=== PATIENT | female | born 1955 | race Caucasian/White ===

== ENCOUNTER 2018-07-20 13:03 | Outpatient (CLI) | payer OTHER ==
--- NOTE | 2018-07-20 14:55 | ULT ---
THYROID ULTRASOUND: INDICATION: Thyroid nodules. COMPARISON: No prior comparison available. FINDINGS: There is nonvisualization of the right thyroid lobe. The left thyroid length is approximately 4 cm. Within the lower aspect of the left thyroid lobe, there is a complex nodule nearly 2 cm in size, pre dominantly solid in echotexture. There is an adjacent predominantly cystic nodule of the right thyro id lobe with a small internal focus of increased echogenicity, measuring approximately 9 mm. Additio nal punctate foci of decreased echogenicity of the left thyroid lobe are seen. There is thickening o f the isthmus of 6 mm. IMPRESSION: 1. Nonvisualization of right thyroid lobe. Correlate for history of prior surgical treatment. 2. Nodules of the left thyroid lobe, the largest of which approximates 2 cm and is solid in echotext ure. This would be amenable to fine needle aspiration as clinically necessary. POS: [facility]
== END 2018-07-20 13:04 | disposition home or self-care (01) ==
LOC: BICULT 13:03
PROVIDERS: ATTEND Otolaryngology Plastic Surgery within the Head & Neck
DX: E04.2 Nontoxic multinodular goiter (principal)
CPT/HCPCS: 76536

== ENCOUNTER 2018-07-27 11:32 | Outpatient (CLI) | payer OTHER ==
--- NOTE | 2018-07-27 13:33 | RAD ---
CHEST TWO VIEWS: History: Dyspnea. FINDINGS: Patient is scoliotic with a single barbara through the thoracic and likely lower lumbar spine. There appe ars to be a layering right effusion. Heart size is enlarged. IMPRESSION: Likely a small layering pleural effusion although difficult to evaluate due to patient's scoliotic ch jeremy and rotation. POS: OFF
== END 2018-07-27 11:33 | disposition home or self-care (01) ==
LOC: RAD 11:32
PROVIDERS: ATTEND Internal Medicine
DX: R06.00 Dyspnea, unspecified (principal)
CPT/HCPCS: 71046

== ENCOUNTER 2018-08-20 12:29 | Day surgery (SDC) | payer OTHER ==
[2018-08-17 11:12] VITALS: BMI 27.1
[2018-08-20] MEDS ORDERED: Lidocaine 1% PF 5 ML VIAL ONE (12:39)
[2018-08-20] MEDS ORDERED: Sodium Bicarbonate 2.5 MEQ/5 ML VIAL ONE (12:39)
[2018-08-20 13:55] VITALS: BP 120/58; TEMP 99.5
--- NOTE | 2018-08-21 14:15 | ULT ---
ULTRASOUND GUIDED FINE NEEDLE ASPIRATION OF THE LEFT THYROID LOBE MASS: COMPARISON: 07/20/2018. FINDINGS: Successful ultrasound-guided fine needle aspiration of a smaller more cystic nodule with layering delicia cification in the left thyroid lobe. There appears the described solid nodule is deep in the left th yroid lobe and is not easily amenable to ultrasound-guided biopsy. A total of 4 passes were obtained . There are no immediate postprocedure complications. TECHNIQUE: Consent was obtained to perform an ultrasound-guided fine needle aspiration of the left thyroid lobe. There are 2 separate lesions present. The more solid lesion is deep in the left thyroid lobe and c annot be easily accessed. This lesion has solid echotexture and the echotexture is similar to the ad jacent thyroid gland. There is a slightly more superficial lesion that has a complex echotexture wit h possible layering debris/calcification. This lesion is amenable to fine needle aspiration. FNA wa s performed with a total of 4 passes. The patient tolerated the procedure well. No immediate postpr ocedure complication. IMPRESSION: Successful ultrasound-guided fine needle aspiration of left thyroid nodule. A total of 4 passes were performed. Final pathologic diagnosis is pending. Follow up imaging of the larger nodule in six months, if warranted. Correlation with prior biopsy re port would be beneficial. Results of the study were discussed with Raj. The patient has been instructed to followup with Dr Chasidy Anthony. The patient states she has an appointment with Dr. Anthony in approximately 1 week. CODE CR POS: [facility]
== END 2018-08-20 13:43 | disposition home or self-care (01) ==
LOC: ULT 12:29
PROVIDERS: ATTEND Otolaryngology Plastic Surgery within the Head & Neck
PROC: 0GBG3ZX Excision of Left Thyroid Gland Lobe, Percutaneous Approach, Diagnostic (ICD-10-PCS; principal; 2018-08-20)
DX: E04.1 Nontoxic single thyroid nodule (principal); J45.909 Unspecified asthma, uncomplicated; E11.9 Type 2 diabetes mellitus without complications; K21.9 Gastro-esophageal reflux disease without esophagitis; Z88.0 Allergy status to penicillin; Z91.041 Radiographic dye allergy status
CPT/HCPCS: 10022; 76942; 88173; J2001

== ENCOUNTER 2018-08-30 20:32 | Inpatient (IN) | payer OTHER ==
[~2018-08-30 20:32] MED LIST: ISOVUE-370 76%-LOCM 1 ML ONE
[2018-08-30] MEDS ORDERED: methylPREDNISolone Sod Succ/PF 125 MG/2 ML VIAL ONE (21:10)
[2018-08-30] MEDS ORDERED: Famotidine/PF 20 mg/2ml Vial ONE (21:10)
[2018-08-30] MEDS ORDERED: diphenhydrAMINE 50 MG/ML VIAL ONE (21:12)
[2018-08-30 21:15] LABS: #Basophils 0.1 thou/uL (0.0-0.2); #Eosinphils 0.1 thou/uL (0.0-0.7); #Lymphocytes 1.6 thou/uL (1.20-3.40); #Monocytes 0.8 thou/uL (0.11-0.59); %Basophils 0.7 % (0.0-1.0); %Eosinophils 0.6 % (0.0-10.0); %Lymphocytes 14.9 % (21.0-51.0); %Monocytes 7.8 % (0.0-10.0); Hemoglobin 13.4 g/dL (12.0-16.0); Mean Corpuscular HGB CONC 31.3 g/dL (32.0-36.0); Mean Corpuscular Hemoglobin 30.2 pg (27.0-31.0); Mean Corpuscular Volume 96.5 fL (78.0-98.0); Platelet Count 293 thou/uL (130-400); RBC Distribution Width 14.4 % (11.5-14.5); Red Blood Cell (RBC) Count 4.43 mill/uL (4.20-5.40); White Blood Cell (WBC) Count 10.5 thou/uL (4.8-10.8)
[2018-08-30 21:35] LABS: ALT (SGPT) 123 U/L (8-55); AST (SGOT) 58 U/L (5-34); Albumin 3.9 g/dL (3.4-4.8); Alkaline Phosphatase 75 U/L (40-150); Anion Gap 11 mmol/L (10-20); BUN (Urea Nitrogen) 13 mg/dL (9.8-20.1); Bilirubin, Total 0.5 mg/dL (0.2-1.2); Calc. Creatinine Clearance 0 mL/min (70-130); Calcium 9.4 mg/dL (7.8-10.44); Carbon Dioxide 37 mmol/L (23-31); Chloride 98 mmol/L (98-107); Estimated GFR-MDRD 89; Globulin 2.9 g/dL (2.4-3.5); Glucose 215 mg/dL (80-115); Potassium 3.6 mmol/L (3.5-5.1); Protein, Total 6.8 g/dL (6.0-8.3); Sodium 142 mmol/L (136-145)
[2018-08-30 21:40] LABS: CKMB 1.3 ng/mL (0-6.6); Troponin I 0.013 ng/mL (< 0.028)
--- NOTE | 2018-08-30 22:50 | CT ---
CT ANGIOGRAM OF THE CHEST 08/30/18 COMPARISON: None. HISTORY: Shortness of breath, assess for pulmonary embolism. TECHNIQUE: Axial CT imaging obtained at 2.5 mm intervals through the chest with IV contrast using a CT angiogram protocol. Coronal and oblique sagittal 3D reformatted imaging obtained. FINDINGS: Imaged upper abdomen demonstrates a hypodense lesion within the anterior aspect of the liver measurin g 8 mm, likely on the basis of a small cyst. No significant pleural, pericardial or mediastinal fluid. There is a prominent levoscoliosis of the thoracic spine with a Salgado barbara which extends from the upper/mid thoracic spine to the mid lumbar spine. 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 The heart is located within the right hemithorax. No axillary hilar or mediastinal lymphadenopathy. There is mild atherosclerotic calcification of the aortic arch. There is no endobronchial lesion evident. There is adequate opacification of the pulmonary arterial vasculature with no evidence for acute pulm onary embolism. There is no pneumothorax noted on either side. Within the anterior aspect of the left upper lobe, there is clustered reticulonodular densities, best seen on axial image 28. There is a focal area of opacity involving the anterior medial left lower lo be measuring in the 2.7 cm range suggesting a focal area of partial consolidation. There is volume loss within the right lower lobe. No acute osseous abnormality is seen. IMPRESSION: No evidence for pulmonary arterial embolism. Findings suspicious for infectious pneumonitis on the le ft. Recommend followup CT examination of the chest following treatment to document resolution. Additi onal chronic/congenital findings as described above. POS: [facility]
[2018-08-30] MEDS ORDERED: cefTRIAXone\\ROCEPHIN 2 GM VIAL ONE (23:02)
[2018-08-30] MEDS ORDERED: Azithromycin 500 MG VIAL ONE ×2 (23:02→23:03)
--- NOTE | 2018-08-30 23:52 | PDOC.FPRHP ---
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 Daniel lAonso, for progressively worsening fatigue, SOB, and lower extremity edema that has began approximately 10 days ago. The patient reports having a recent thyroid biopsy after being found to have 2 left-sided thyroid nodules by her ENT, Dr. Anthony. She stated that just 2-3 days after her biopsy she began to feel extremely more fatigued that usual. She also endorsed increased SOB, especially with exertion and some associated swelling in her feet up into her ankles. Per her sister her feet "looked like basketballs." The patient also reported some associated tachycardia, decreases appetite, and low grade fevers at home. She denied any associated cough, congestion, chest pain, sore throat, or arthralgias. She also denied any PND, orthopnea, or abdominal pain/tenderness. The patient endorsed being around her nephew who had an ear infection over and states that her boss at work has recently been sick with a cough at work. ED Course: ED: 125mg IV methylprednisilone, 20mg of famotidine, 50mg IV benadryl, 2g IV rocephin, 500mg of azithromycin and 1 duoneb treatment - Allergies/Adverse Reactions Allergies Allergy/AdvReac Type Severity Reaction Status Date / Time iodine Allergy Verified 08/31/18 00:41 Penicillins Allergy Verified 08/31/18 00:41 Tetanus Vaccines and Toxoid Allergy Verified 08/31/18 00:41 - Home Medications Medication Instructions Recorded Confirmed Type Cholecalciferol (Vitamin D3) 1,000 unit PO DAILY 08/17/18 08/31/18 History [Vitamin D] Losartan [Cozaar] 12.5 mg PO DAILY 08/17/18 08/31/18 History Multivitamin [Multivitamins] 1 cap PO DAILY 08/17/18 08/31/18 History Nebivolol HCl [Bystolic] 10 mg PO DAILY 08/17/18 08/31/18 History Olopatadine HCl [Olopatadine HCl 1 spray EA NARE DAILY 08/17/18 08/31/18 History Nasal Solution ([place])] Pantoprazole [Protonix] 40 mg PO DAILY 08/17/18 08/31/18 History metFORMIN [Glucophage] 500 mg PO QID 08/17/18 08/31/18 History - History PMHx: h/o 2 thyroid nodules s/p FNA/biopsy, DMII, GERD, asthma, dextrocardia, scoliosis PSHx: Salgado barbara placement, cervical laminectomy, appendectomy, cholecystectomy, 4-5 corrective surgeries on right hand for floating thumb at FHx: Parents- DM & HTN Social: Lives at home alone in [place]. No tobacco, EtOH, or drug use. - Review of Systems General: reports: fever/chills, weight/appetite/sleep changes, night sweats, fatigue Eyes: reports: vision changes. denies: eye pain ENT: reports: other (no sore throat). denies: nasal congestion, rhinorrhea Respiratory: reports: shortness of breath. denies: cough, congestion Cardiovascular: reports: edema. denies: chest pain, palpitation, paroxysmal nocturnal dyspnea, orthopnea Gastrointestinal: denies: nausea, vomiting, diarrhea, constipation, abdominal pain Genitourinary: reports: other (no frequency). denies: dysuria Skin: denies: rashes, itching Musculoskeletal: reports: swelling. denies: arthritis/arthralgias Neurological: reports: numbness (in fingertips and toes occasionally). denies: syncope, weakness Psychological: denies: anxiety, depression - Vital signs BP: 125/77 HR: 100 RR: 18 Tmax: 98.6F Pox: 97% on 2L Wt: 66.361 kg - Physical Exam Constitutional: NAD, awake, alert and oriented, well developed HEENT: normocephalic and atraumatic, conjunctiva clear, grossly normal vision, grossly normal hearing, normal nasal mucosa, MMM, oropharynx clear Neck: supple, FROM Chest: no-tender to palpation Heart: normal S1/S2, no murmurs/rubs/gallops, pulses present, no edema ( tachycardic with regular rhythm) Lungs: CTAB, no respiratory distress, good air movement, no rales/rhonchi, no wheezing Abdomen: soft, non-tender, bowel sounds present Musculoskeletal: ROM grossly normal, other (R hand deformity 2/2 "floating thumb " present at ) Neurological: no focal deficit, CN II-XII intact (symmetric facial movements) Skin: no rash/lesions, good turgor Heme/Lymphatic: no unusual bruising or bleeding Psychiatric: normal mood and affect, good judgment and insight, intact recent and remote memory FMR H&P: Results - Labs Result Diagrams: 08/31/18 04:49 08/31/18 04:49 Lab results: WBC 10.5 thou/uL (4.8-10.8) 08/30/18 20:57 Hgb 13.4 g/dL (12.0-16.0) 08/30/18 20:57 Hct 42.7 % (36.0-47.0) 08/30/18 20:57 MCV 96.5 fL (78.0-98.0) 08/30/18 20:57 Plt Count 293 thou/uL (130-400) 08/30/18 20:57 Neutrophils % 76.0 % (42.0-75.0) H 08/30/18 20:57 Sodium 142 mmol/L (136-145) 08/30/18 20:57 Potassium 3.6 mmol/L (3.5-5.1) 08/30/18 20:57 Chloride 98 mmol/L (98-107) 08/30/18 20:57 Carbon Dioxide 37 mmol/L (23-31) H 08/30/18 20:57 BUN 13 mg/dL (9.8-20.1) 08/30/18 20:57 Creatinine 0.67 mg/dL (0.6-1.1) 08/30/18 20:57 Glucose 215 mg/dL (80-115) H 08/30/18 20:57 Calcium 9.4 mg/dL (7.8-10.44) 08/30/18 20:57 Total Bilirubin 0.5 mg/dL (0.2-1.2) 08/30/18 20:57 AST 58 U/L (5-34) H 08/30/18 20:57 ALT 123 U/L (8-55) H 08/30/18 20:57 Alkaline Phosphatase 75 U/L (40-150) 08/30/18 20:57 CK-MB (CK-2) 1.3 ng/mL (0-6.6) 08/30/18 20:57 B-Natriuretic Peptide 73.9 pg/mL (0-100) 08/30/18 20:57 Serum Total Protein 6.8 g/dL (6.0-8.3) 08/30/18 20:57 Albumin 3.9 g/dL (3.4-4.8) 08/30/18 20:57 - Radiology Interpretation CT scan - chest Status: report reviewed by me (LLL PNA) FMR H&P: A/P - Problem List (1) Community acquired pneumonia Current Visit: Yes Status: Acute Code(s): J18.9 - PNEUMONIA, UNSPECIFIED ORGANISM Qualifiers: Laterality: left Lung location: lower lobe of lung Qualified Code(s): J18.1 - Lobar pneumonia, unspecified organism (2) GERD (gastroesophageal reflux disease) Current Visit: Yes Status: Acute Code(s): K21.9 - GASTRO-ESOPHAGEAL REFLUX DISEASE WITHOUT ESOPHAGITIS (3) DMII (diabetes mellitus, type 2) Current Visit: Yes Status: Acute (4) Dextrocardia Current Visit: Yes Status: Acute Code(s): Q24.0 - DEXTROCARDIA (5) Scoliosis Current Visit: Yes Status: Acute (6) Multiple thyroid nodules Current Visit: Yes Status: Acute Code(s): E04.2 - NONTOXIC MULTINODULAR GOITER (7) Asthma Current Visit: Yes Status: Acute Code(s): J45.909 - UNSPECIFIED ASTHMA, UNCOMPLICATED Qualifiers: Asthma severity: mild - Plan 62YOF w/ a PMH significant for DMII, multiple thyroid nodules, and GERD who presented to the ED w/ a CC of worsening SOB, fatigue & LE edema that began approximately 10 days ago who was found to have LLL PNA on a chest CTA. CAP: - 2.7cm LLL focal consolidation seen on chest CTA. - Patient has been afebrile since admission but was reportedly hypoxic with an O2 sat of 40% in the ED but completely alert and conversant. She was placed on 4L of O2 and has been titrated down to 2-3. Has also been tachycardic since her arrival to the ED. Does not meet CURB-65 criteria requiring admission but due to her reported hypoxia and increased O2 requirements compared to her baseline, she was admitted for closer observation overnight. - Procal was in indeterminate range for sepsis at 0.50. - Will continue IV rocephin and azithromycin that was started in the ED. - Patient reportedly normally requires 2L of O2 at home QHS. Will continue while she is here and continue O2 during the day PRN to maintain sats >92%. - Will consult Dr. Alonso in the AM who is her pile driving supervisor who instructed her to come to the ED for evaluation. Transaminitis: - AST & ALT slightly elevated on admission at 58 and 123. Likely 2/2 inflammatory stress from PNA but will screen for Hepatitis, syphillis and HIV. - Will continue to monitor w/ QD labs. DMII: - BG elevated at 215 on admission. - Will resume home dose of metformin at 500mg QID. - Will order ACHS accuchecks and mild SSI PRN. GERD: - Aware, will resume home protonix dose. Asthma: - Patient reports being diagnosed with mild asthma by her Dryerman/Woman, Dr. Alonso. - Says she was started on Breo recently. Multiple thyroid nodules: - Aware, patient is following w/ ENT, Dr. Mendoza Anthony for an outpatient workup of 2 L-sided thyroid nodules. - Had a biopsy of one done on 08/20. Dextrocardia: - Aware. FMR H&P: Upper Level - Pertinent history 62 yo F with PMHx dextrocardia, T2DM, GERD and recent thyroid FNA who was sent to ED by Dr. Alonso for worsening fatigue, SOB and LE edema. She endorses SOB with exertion and swelling of LE that has progressed over the last 10 days. - Pertinent findings VSS Gen: awake, alert, oriented HEENT: conjunctiva non-injected CV: RRR, no murmur noted, intermittently tachycardic RESP: CTAB ABD: nontender, nondistended EXT: no edema - Plan Date/Time: 08/30/18 2352 62 yo F with PMHx T2DM, dextrocardia here with LLL PNA 1. Acute hypoxic respiratory failure 2/2 CAP: Noted on CTA. Hypoxic on admission , stable now on NC. Procal indeterminate. Will continue rocephin and azithromycin. Will notify Dr. Alonso she is here. 2. Transaminitis: Monitor and consider further w/u if persistent 3. T2DM: Home meds, accuchecks and SSI. Please see Dr. Vicente's note for remainder of A/P I, India Villegas MD, PGY-3, have evaluated this patient and agree with findings/ plan as outlined by gallery intern resident. Pertinent changes/additions are listed here.
[2018-08-31] MEDS ORDERED: HumaLOG 300 UNITS/3 ML VIAL SC PRN (00:17)
[2018-08-31] MEDS ORDERED: Acetaminophen 325 MG TAB PO PRN (00:17)
[2018-08-31] MEDS ORDERED: Dextrose 5% in Water 1,000 ML IV PRN (00:17)
[2018-08-31] MEDS ORDERED: Dextrose 50% Abboject 50 ML SYRINGE SLOW IVP PRN (00:17)
[2018-08-31 00:39] VITALS: BMI 28.5
[2018-08-31] MEDS ORDERED: Ondansetron ODT 4 MG TAB SL PRN (00:48)
[2018-08-31] MEDS ORDERED: Ondansetron PF 4 MG/2 ML Vial IVP PRN (00:48)
[2018-08-31 05:58] LABS: ALT (SGPT) 139 U/L (8-55); AST (SGOT) 62 U/L (5-34); Albumin 4.2 g/dL (3.4-4.8); Alkaline Phosphatase 82 U/L (40-150); Anion Gap 12 mmol/L (10-20); BUN (Urea Nitrogen) 11 mg/dL (9.8-20.1); Bilirubin, Total 0.2 mg/dL (0.2-1.2); Calc. Creatinine Clearance 92 mL/min (70-130); Calcium 9.4 mg/dL (7.8-10.44); Carbon Dioxide 37 mmol/L (23-31); Chloride 98 mmol/L (98-107); Estimated GFR-MDRD 89; Globulin 3.3 g/dL (2.4-3.5); Glucose 221 mg/dL (80-115); Potassium 4.6 mmol/L (3.5-5.1); Protein, Total 7.5 g/dL (6.0-8.3); Sodium 142 mmol/L (136-145)
[2018-08-31 06:45] LABS: #Eosinphils 0.1 thou/uL (0.0-0.7); #Lymphocytes 0.7 thou/uL (1.20-3.40); #Monocytes 0.1 thou/uL (0.11-0.59); #Neutrophils 8.6 thou/uL (1.40-6.50); %Basophils 0.3 % (0.0-1.0); %Eosinophils 0.7 % (0.0-10.0); %Lymphocytes 7.6 % (21.0-51.0); %Monocytes 0.8 % (0.0-10.0); %Neutrophils 90.6 % (42.0-75.0); Hemoglobin 13.9 g/dL (12.0-16.0); Mean Corpuscular HGB CONC 30.6 g/dL (32.0-36.0); Mean Corpuscular Hemoglobin 29.8 pg (27.0-31.0); Mean Corpuscular Volume 97.6 fL (78.0-98.0); Platelet Count 313 thou/uL (130-400); RBC Distribution Width 14.4 % (11.5-14.5); Red Blood Cell (RBC) Count 4.67 mill/uL (4.20-5.40); White Blood Cell (WBC) Count 9.5 thou/uL (4.8-10.8)
[2018-08-31 07:17] LABS: Syphilis Antibody Nonreactive (Nonreactive); Syphilis Antibody Index 0.04 S/CO (<1.00 Non-Reactive)
[2018-08-31 08:23] LABS: HBSAg Index 0.21 S/CO (0-0.99); HIV (1/2) Antibody/Antigen Non-Reactive (NonReactive); HIV 1/2 INDEX 0.08 S/CO (<1.00); Hep A IgM AB Non-Reactive (NonReactive); Hep A IgM S/CO 0.11 S/CO (0-0.79); Hep B Core Total Ab Non-Reactive (NonReactive); Hep B Core Total Index 0.09 S/CO (0-0.79); Hep B Surf AB Non-Reactive (NonReactive); Hep B Surf Ag Non-Reactive S/CO (NonReactive); Hep C IgG Ab Non-Reactive (NonReactive); Hep C Index 0.22 S/CO (0-0.79)
[2018-08-31] MEDS: OLOPATADINE HCL EA NARE SCH ×2 (09:04→20:00)
[2018-08-31] MEDS: Losartan 25 MG TAB PO SCH (09:06)
[2018-08-31] MEDS: Nebivolol HCl 5 MG TAB PO SCH (09:07)
[2018-08-31] MEDS: metFORMIN 500 MG TAB PO SCH ×4 (09:08→20:00)
[2018-08-31] MEDS: Multivit, Therapeutic 1 TAB PO SCH (09:08)
--- NOTE | 2018-08-31 10:59 | PDOC.FM ---
- Subjective Subjective: No acute events overnight. Required 5L of O2. Denies feeling SOB. Endorses feeling slightly feverish. No chest pain, dysphagia, wheezing, cyanosis - Objective Vital Signs & Weight: Vital Signs (12 hours) Temp Pulse Resp BP Pulse Ox 08/31/18 08:00 98.9 F 105 H 16 130/59 L 92 L 08/31/18 00:30 98.7 F 104 H 20 133/70 98 Weight Weight 66.361 kg Result Diagrams: 08/31/18 04:49 08/31/18 04:49 Phys Exam - Physical Examination Constitutional: NAD HEENT: PERRLA, moist MMs, sclera anicteric Neck: supple, full ROM left thyroid nodule Respiratory: no rhonchi, clear to auscultation bilateral mild end expiratory wheezing Cardiovascular: RRR, no significant murmur R sided heart sounds Gastrointestinal: soft, non-tender Musculoskeletal: no edema, pulses present Neurological: non-focal, moves all 4 limbs Psychiatric: normal affect, A&O x 3 Dx/Plan (1) Asthma Code(s): J45.909 - UNSPECIFIED ASTHMA, UNCOMPLICATED Status: Acute Qualifiers: Asthma severity: mild (2) Community acquired pneumonia Code(s): J18.9 - PNEUMONIA, UNSPECIFIED ORGANISM Status: Acute Qualifiers: Laterality: left Lung location: lower lobe of lung Qualified Code(s): J18.1 - Lobar pneumonia, unspecified organism (3) DMII (diabetes mellitus, type 2) Status: Acute (4) Dextrocardia Code(s): Q24.0 - DEXTROCARDIA Status: Acute (5) GERD (gastroesophageal reflux disease) Code(s): K21.9 - GASTRO-ESOPHAGEAL REFLUX DISEASE WITHOUT ESOPHAGITIS Status: Acute (6) Multiple thyroid nodules Code(s): E04.2 - NONTOXIC MULTINODULAR GOITER Status: Acute (7) Scoliosis Status: Acute - Plan Plan: 62 yo F with hx of dextrocardia, scoliosis here with LLL CAP and acute hypoxia LLL CAP -Continue ceftriaxone & azithromycin -Procal 0.49 on 08/31 -Afebrile, no white count -Pending sputum & blood cultures -Continue supplental O2, had acute hypoxic episode when trying to wean off of O2 -Will consult pulmonology for further recs Transaminitis -Will order RUQ US -Celiac workup-anti TTG/Anti gliadin ABs -Continue to monitor with daily labs DM2 -Stable -Continue home meds -SS to cover GERD -home meds Asthma -Continue home meds Dextrocardia -Aware Multiple thyroid nodules s/p FNA -Bx scheduled in September ppx: lovenox discussed with Dr. Jimenez
[2018-08-31] MEDS: Enoxaparin Sodium 40 MG/0.4 ML SYRINGE SC SCH (12:10)
--- NOTE | 2018-08-31 15:57 | ULT ---
RIGHT UPPER QUADRANT ULTRASOUND: DATE: 08/31/2018. PROVIDED CLINICAL HISTORY: Elevated LFTs. FINDINGS: The visualized portions of the IVC and pancreas appear normal. The liver demonstrates no mass or int rahepatic biliary ductal dilatation. The gallbladder is not visualized compatible with the provided clinical history of prior cholecystectomy. The common duct is not dilated. The right kidney demonst rates no evidence for hydronephrosis. There is a 1 cm echogenic focus with associated twinkle artifa ct involving the right renal pelvis suspicious for a renal calculus. IMPRESSION: Suspected 1 cm right renal calculus. POS: [facility]
[2018-08-31] MEDS ORDERED: cefTRIAXone\\ROCEPHIN 1 GM in Sodium Chloride 0.9% 100 ML IVPB SCH (21:00)
--- NOTE | 2018-08-31 21:42 | CON ---
DATE OF CONSULTATION: 08/31/2018 CONSULTING PHYSICIAN: Dr. Lindsay Hayes. REASON FOR CONSULTATION: Shortness of breath and hypoxemia. HISTORY OF PRESENT ILLNESS: This is a 62-year-old female, who was admitted to the hospital on 08/30 with increasing shortness of breath and chest "feeling bad." The patient says the symptoms began after a finding on biopsy of her thyroid on 08/20/2018. She went home for several days before being admitted with the above complaints. She was seen by my partner, Dr. Daniel Alonso in the office on 07/27/2018 as a new patient. At that time, she had similar complaints of shortness of breath. A previous bulb sorter in the [place] had started her on home oxygen that she was using on an as needed basis. Dr. Alonso had ordered several blood tests, PFTs, and a CT and those were scheduled for 09/12. When she was admitted, a CT was performed, which did not show any evidence of pulmonary emboli, but it hinted the possibility of a pneumonia in the left base. She has not had a blood gas. Her BNP was normal. She is yet to have the PFTs. PAST MEDICAL HISTORY: 1. Dextrocardia. 2. Malformed right hand. 3. Diabetes mellitus type 2. 4. Gastroesophageal reflux. 5. Kyphoscoliosis. 6. Asthma. 7. Salgado barbara placement for scoliosis. 8. Cervical neck fusion. 9. Appendectomy. 10. Hand surgery. 11. Ovarian cyst. ALLERGIES: IODINE, TETANUS VACCINE, AND PENICILLIN. FAMILY MEDICAL HISTORY: Remarkable for diabetes, hypertension, heart failure, and sleep apnea. MEDICATIONS: Prior to admission: 1. Metformin. 2. Losartan. 3. Bystolic. 4. Protonix. 5. Multivitamin. 6. Vitamin D3. 7. Nasal spray as needed. REVIEW OF SYSTEMS: Negative except for that described above. PHYSICAL EXAMINATION: VITAL SIGNS: Temperature 98.5, pulse 96, respirations 16, O2 saturation 97% on 4 L, blood pressure 131/67. GENERAL: The patient is a middle-aged female, who is lying in bed, and in no acute distress. She is wearing oxygen. HEENT: Pupils are reactive. Sclerae are anicteric. Oropharynx is clear. NECK: No adenopathy or JVD. LUNGS: She has few crackles in the left base, none in the right. CARDIOVASCULAR: S1 and S2 with a 2/6 systolic murmur at the right sternal border. Heart sounds are definitely appreciated more so on the right chest than the left. ABDOMEN: Soft and nontender. No hepatosplenomegaly. No ascites noted. EXTREMITIES: No clubbing, cyanosis, or edema. NEUROLOGIC: She moves all four extremities. 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 Her right hand is significantly smaller than the left. LABORATORY DATA: White blood cell count 9.5, hematocrit 45.5, platelet count 313. Sodium 142, potassium 4.6, chloride 98, CO2 of 37, BUN of 11, creatinine 0.6, glucose 221. BNP 73, albumin 4.2. Hepatitis profile was negative. HIV is negative. CT and chest x-ray were reviewed. ASSESSMENT: Hypoxemia, out of proportion to physical exam findings. Although, her CT hinted pneumonia, this certainly is not supported by her lack of cough, fever, and other overall symptomatology. I suspect her hypoxemia is from restrictive lung disease. I am also wondering if she does not have some heart issues given her dextrocardia. Pulmonary hypertension needs to be evaluated. RECOMMENDATIONS: 1. ABG. 2. At some point, she needs PFTs with DLCO, but this cannot be done until Monday. 3. She needs to be kept on oxygen and will likely need to go home on 3-4 liters of oxygen. Thank you for this referral. Job ID: [id number]
[2018-08-31] MEDS ORDERED: Azithromycin 500 MG in Sodium Chloride 0.9% 250 ML 250 ML IVPB SCH (22:00)
--- NOTE | 2018-08-31 22:33 | HP ---
I have reviewed the history and physical and assessment and plan of Dr. Sarah Vicente and agree with her assessment and plan. We discussed the case. HISTORY OF PRESENT ILLNESS: Ms. Negro is a pleasant 62-year-old white female with a past medical history significant for dextrocardia, type 2 diabetes, and GERD. She was admitted through the ER with chief complaint of shortness of breath and intermittent hypoxia, which the family states is not new. She also sees Dr. Alonso as an outpatient for her multiple pulmonary issues. PHYSICAL EXAMINATION: GENERAL: In the event when I examined Ms. Negro, she was awake, alert, sitting up in bed, in no distress, not short of breath. VITAL SIGNS: Her blood pressure is 130/70, her heart rate was 95, she was afebrile, her pulse ox on 2 L was 97%. EARS, NOSE, AND THROAT: No erythema or exudate. NECK: Supple. CARDIAC: No murmurs or rubs noted. LUNGS: Diminished sounds with no rales, rhonchi, or wheezes. No distress. ABDOMEN: Flat and soft. NEUROLOGICAL: No focal deficits. LABORATORY DATA: CBC; white count 10,500, hemoglobin 13.4, and hematocrit 42.7. Her chemistries; sodium 142, potassium 4.6, chloride 98, bicarbonate 37, BUN 11, creatinine 0.67, and glucose was 221. Serology is negative for RPR and hepatitis A and B. ASSESSMENT: 1. Shortness of breath, likely due to hospital-acquired pneumonia, currently stable. 2. Asthma. 3. Type 2 diabetes. 4. Dextrocardia. RECOMMENDATIONS: 1. Continue antibiotics. 2. Discuss case with Dr. Alonso. Job ID: [id number]
--- NOTE | 2018-09-01 05:26 | PDOC.FM ---
Addendum entered and electronically signed by Lindsay Hayes MD 09/01/18 07:50 : Plan: will repeat base met this afternoon Original Note: - Subjective Subjective: No acute events overnight. Denies any concerns or problems at this time. Denies chest pain, SOB, orthopnea, difficulty breathing. - Objective MAR Reviewed: Yes Vital Signs & Weight: Vital Signs (12 hours) Temp Pulse Resp BP Pulse Ox 09/01/18 04:00 98.7 F 99 20 127/62 92 L 08/31/18 19:56 95 Weight Weight 66.361 kg I&O: 08/30/18 08/31/18 09/01/18 06:59 06:59 06:59 Intake Total 760 Balance 760 Result Diagrams: 09/01/18 05:55 09/01/18 05:55 <Lindsay Hayes - Last Filed: 09/01/18 07:23> - Objective Vital Signs & Weight: Vital Signs (12 hours) Temp Pulse Resp BP Pulse Ox 09/01/18 12:40 103 H 13 101/64 93 L 09/01/18 09:07 99.0 F 106 H 16 126/60 94 L 09/01/18 04:00 98.7 F 99 20 127/62 92 L Weight Weight 66.361 kg I&O: 08/31/18 09/01/18 09/02/18 06:59 06:59 06:59 Intake Total 760 Output Total 620 Balance 760 -620 Result Diagrams: 09/01/18 05:55 09/01/18 12:25 <Emely Benson - Last Filed: 09/01/18 14:13> Phys Exam - Physical Examination Constitutional: NAD HEENT: PERRLA, sclera anicteric Neck: full ROM Respiratory: no rhonchi, clear to auscultation bilateral mild end expiratory wheezes, no subcostal retractions Cardiovascular: RRR, no significant murmur heart sounds in right thorax Gastrointestinal: soft, non-tender Neurological: non-focal, moves all 4 limbs 1+ edema Psychiatric: normal affect, A&O x 3 <Lindsay Hayes - Last Filed: 09/01/18 07:23> Dx/Plan (1) Community acquired pneumonia Code(s): J18.9 - PNEUMONIA, UNSPECIFIED ORGANISM Status: Acute Qualifiers: Laterality: left Lung location: lower lobe of lung Qualified Code(s): J18.1 - Lobar pneumonia, unspecified organism (2) Transaminitis Code(s): R74.0 - NONSPEC ELEV OF LEVELS OF TRANSAMNS & LACTIC ACID DEHYDRGNSE Status: Acute (3) DMII (diabetes mellitus, type 2) Status: Chronic (4) Asthma Code(s): J45.909 - UNSPECIFIED ASTHMA, UNCOMPLICATED Status: Chronic Qualifiers: Asthma severity: mild (5) Dextrocardia Code(s): Q24.0 - DEXTROCARDIA Status: Chronic (6) GERD (gastroesophageal reflux disease) Code(s): K21.9 - GASTRO-ESOPHAGEAL REFLUX DISEASE WITHOUT ESOPHAGITIS Status: Chronic (7) Multiple thyroid nodules Code(s): E04.2 - NONTOXIC MULTINODULAR GOITER Status: Chronic (8) Scoliosis Status: Chronic - Plan Plan: 62 yo F with hx of dextrocardia, scoliosis here with LLL CAP and acute hypoxia Acute metabolic alkalosis -possibly 2/2 underlying respiratory acidosis from TYSHAWN or pulm. HTN -Stable on 5L via NC -Will start on CPAP, continuous O2 monitoring -Plans to meet with Dr. Alonso for outpt w/u in October LLL CAP -Continue ceftriaxone & azithromycin, can consider transition to po abx -Procal 0.49 -> .41 -Afebrile, no white count -Continue supplemental O2, had acute hypoxic episode when trying to wean off of O2 Transaminitis -RUQ US negative -LFTs trending down -Celiac workup-anti TTG/Anti gliadin ABs, pending -Continue to monitor with daily labs DM2 -Stable -Continue home meds -SS to cover GERD -home meds Asthma -Continue home meds Dextrocardia -Aware Multiple thyroid nodules s/p FNA -Bx scheduled in September Dvt ppx: lovenox discussed with Dr. Benson <Lindsay Hayes - Last Filed: 09/01/18 07:23> Attending Addendum - Attending Addendum Date/Time: 09/01/18 0910 I personally evaluated the patient and discussed the management with Dr. Hayes. I agree with the History, Examination, Assessment and Plan documented above with any addition or exceptions noted below. The patient is awake and alert and asking about going home. Echo was being completed as we walked into the room. Results are pending. Pt remains on oxygen. Bicarb elevated, ABG pending from yesterday. <Emely Benson - Last Filed: 09/01/18 14:13>
[2018-09-01 06:16] LABS: #Eosinphils 0.1 thou/uL (0.0-0.7); #Lymphocytes 1.1 thou/uL (1.20-3.40); #Monocytes 0.9 thou/uL (0.11-0.59); #Neutrophils 7.8 thou/uL (1.40-6.50); %Basophils 0.5 % (0.0-1.0); %Eosinophils 1.3 % (0.0-10.0); %Lymphocytes 11.3 % (21.0-51.0); %Monocytes 8.9 % (0.0-10.0); %Neutrophils 78.1 % (42.0-75.0); Hemoglobin 13.2 g/dL (12.0-16.0); Mean Corpuscular HGB CONC 30.6 g/dL (32.0-36.0); Mean Corpuscular Hemoglobin 30.8 pg (27.0-31.0); Mean Platelet Volume 8.8 fL (7.4-10.4); Platelet Count 286 thou/uL (130-400); RBC Distribution Width 14.6 % (11.5-14.5); Red Blood Cell (RBC) Count 4.28 mill/uL (4.20-5.40); White Blood Cell (WBC) Count 9.9 thou/uL (4.8-10.8)
[2018-09-01 06:34] LABS: ALT (SGPT) 114 U/L (8-55); AST (SGOT) 38 U/L (5-34); Albumin 3.9 g/dL (3.4-4.8); Alkaline Phosphatase 77 U/L (40-150); BUN (Urea Nitrogen) 11 mg/dL (9.8-20.1); Bilirubin, Total 0.3 mg/dL (0.2-1.2); Calc. Creatinine Clearance 107 mL/min (70-130); Calcium 9.2 mg/dL (7.8-10.44); Estimated GFR-MDRD Greater than 90; Globulin 2.5 g/dL (2.4-3.5); Glucose 154 mg/dL (80-115); Protein, Total 6.4 g/dL (6.0-8.3)
[2018-09-01 06:43] LABS: Anion Gap 11 mmol/L (10-20); Chloride 97 mmol/L (98-107); Potassium 4.6 mmol/L (3.5-5.1); Sodium 145 mmol/L (136-145)
[2018-09-01 06:46] LABS: Carbon Dioxide 42 mmol/L (23-31)
[2018-09-01] MEDS: Nebivolol HCl 5 MG TAB PO SCH (09:35)
[2018-09-01] MEDS: Multivit, Therapeutic 1 TAB PO SCH (09:35)
[2018-09-01] MEDS: Losartan 25 MG TAB PO SCH (09:36)
[2018-09-01] MEDS: metFORMIN 500 MG TAB PO SCH ×4 (09:36→20:00)
[2018-09-01] MEDS: Enoxaparin Sodium 40 MG/0.4 ML SYRINGE SC SCH (09:37)
[2018-09-01] MEDS: OLOPATADINE HCL EA NARE SCH ×2 (10:20→19:59)
[2018-09-01 12:54] LABS: BUN (Urea Nitrogen) 11 mg/dL (9.8-20.1); Calc. Creatinine Clearance 126 mL/min (70-130); Calcium 9.5 mg/dL (7.8-10.44); Estimated GFR-MDRD Greater than 90; Glucose 153 mg/dL (80-115)
[2018-09-01 13:03] LABS: Anion Gap 13 mmol/L (10-20); Carbon Dioxide 38 mmol/L (23-31); Chloride 95 mmol/L (98-107); Potassium 4.1 mmol/L (3.5-5.1); Sodium 142 mmol/L (136-145)
[2018-09-01 13:15] LABS: Actual Bicarbonate (HCO3a) 50.2 mEq/L (22-28); CO2 Tension 133.4 mmHg (35.0-45.0); Hemoglobin (Hb) 13.5 g/dL (12.0-16.0); O2 Tension (PaO2) 70.5 mmHg (> 80.0); pH, Arterial 7.19 (7.35-7.45)
[2018-09-01 13:16] LABS: Carboxyhemoglobin (COHb) 1.2 gm% (0.0-3.0); Potassium - ABG Lab 4.11 mmol/L (3.70-5.30)
[2018-09-01 13:17] LABS: Analyzer IN Cardio OR; Calcium, Ionized 1.26 mmol/L (1.12-1.30); Puncture Site LRA
--- NOTE | 2018-09-01 13:58 | PRG ---
DATE OF SERVICE: 09/01/2018 SUBJECTIVE: The patient is more confused today. Her blood gas did not get drawn yesterday as ordered, but today's blood gas shows a pH of 7.19, pCO2 of 133, pO2 of 70, that is on 4 L nasal cannula. A 24-hour intake is 760, output is not quantitated. OBJECTIVE: GENERAL: She is pleasant, but somewhat disoriented. HEENT: Unremarkable. NECK: No JVD. LUNGS: Clear, but distant breath sounds. CARDIAC: S1 and S2, regular. ABDOMEN: Soft. EXTREMITIES: No edema. LABORATORY DATA: Sodium 145, potassium 4.6, chloride 97, CO2 is 42, BUN 11, creatinine 0.5, glucose 154. ASSESSMENT: 1. Chronic hypercapnic respiratory failure, which I assume is due to kyphoscoliosis, restrictive physiology. 2. Probable underlying obstructive sleep apnea/Pickwickian syndrome. PLAN: 1. Move to IMCU and start BiPAP. 2. Eventually, we will need PFTs done. 3. Follow electrolytes. Job ID: [id number]
--- NOTE | 2018-09-01 14:45 | PDOC.EVN ---
Event Note - Event Note Event Note: Pt. was evaluated by nurse and appeared lethargic and dyspnic. Nurse notified Dr. Coleman who evaluate the pt, obtained an ABG, and transferred pt to the [facility] on BiPAP. The residents were not notified by hospital staff and were informed by preceptor who noticed the pt. moved on the computer. Following discussion with preceptor, we checked in on the pt to see that she was on BiPAP and no acute distress.
[2018-09-02 04:32] LABS: #Eosinphils 0.1 thou/uL (0.0-0.7); #Lymphocytes 0.8 thou/uL (1.20-3.40); #Monocytes 0.7 thou/uL (0.11-0.59); #Neutrophils 4.8 thou/uL (1.40-6.50); %Basophils 0.5 % (0.0-1.0); %Eosinophils 0.8 % (0.0-10.0); %Lymphocytes 12.9 % (21.0-51.0); %Monocytes 10.7 % (0.0-10.0); %Neutrophils 75.2 % (42.0-75.0); Mean Corpuscular Hemoglobin 30.9 pg (27.0-31.0); Mean Corpuscular Volume 99.6 fL (78.0-98.0); Mean Platelet Volume 8.9 fL (7.4-10.4); Platelet Count 235 thou/uL (130-400); RBC Distribution Width 14.2 % (11.5-14.5); White Blood Cell (WBC) Count 6.4 thou/uL (4.8-10.8)
[2018-09-02 04:47] LABS: ALT (SGPT) 75 U/L (8-55); AST (SGOT) 20 U/L (5-34); Albumin 3.5 g/dL (3.4-4.8); Alkaline Phosphatase 65 U/L (40-150); BUN (Urea Nitrogen) 9 mg/dL (9.8-20.1); Bilirubin, Total 0.4 mg/dL (0.2-1.2); Calc. Creatinine Clearance 124 mL/min (70-130); Calcium 9.2 mg/dL (7.8-10.44); Estimated GFR-MDRD Greater than 90; Globulin 2.5 g/dL (2.4-3.5); Glucose 125 mg/dL (80-115)
[2018-09-02 04:57] LABS: Anion Gap 17 mmol/L (10-20); Carbon Dioxide 38 mmol/L (23-31); Chloride 92 mmol/L (98-107); Sodium 143 mmol/L (136-145)
--- NOTE | 2018-09-02 05:41 | PDOC.FM ---
- Subjective Subjective: Transferred to [facility] yesterday afternoon after become more lethargic. ABG c/w with respiratory acidosis. Started in Bipap. Reports not feeling well today. Denies cough, fevers, chills. - Objective MAR Reviewed: Yes Vital Signs & Weight: Vital Signs (12 hours) Temp Pulse Resp BP Pulse Ox 09/02/18 03:46 98.9 F 100 20 123/67 95 09/02/18 00:00 99 F 93 13 131/68 94 L 09/01/18 23:08 98 09/01/18 20:00 96 09/01/18 19:44 97.9 F 90 14 122/55 L 96 Weight Weight 64.093 kg I&O: 08/31/18 09/01/18 09/02/18 06:59 06:59 06:59 Intake Total 760 650 Output Total 1170 Balance 760 -520 Result Diagrams: 09/02/18 03:53 09/02/18 03:53 <Lindsay Hayes - Last Filed: 09/02/18 07:15> - Objective Vital Signs & Weight: Vital Signs (12 hours) Temp Pulse Resp BP Pulse Ox 09/02/18 11:11 98.7 F 93 17 104/62 95 09/02/18 08:18 94 L 09/02/18 08:00 93 L 09/02/18 07:24 98.4 F 97 13 157/85 H 97 09/02/18 03:46 98.9 F 100 20 123/67 95 Weight Weight 64.093 kg I&O: 09/01/18 09/02/18 09/03/18 06:59 06:59 06:59 Intake Total 760 650 Output Total 1170 Balance 760 -520 Result Diagrams: 09/02/18 03:53 09/02/18 03:53 <Emely Bensno - Last Filed: 09/02/18 15:19> Phys Exam - Physical Examination Constitutional: NAD bipap mask on HEENT: PERRLA, moist MMs, sclera anicteric restricted due to bipap difficult to hear with bipap on Gastrointestinal: soft, non-tender Musculoskeletal: no edema, pulses present Neurological: non-focal, moves all 4 limbs Psychiatric: A&O x 3 Skin: no rash, normal turgor <Lindsay Hayes - Last Filed: 09/02/18 07:15> Dx/Plan (1) Acute hypercapnic respiratory failure Code(s): J96.02 - ACUTE RESPIRATORY FAILURE WITH HYPERCAPNIA Status: Acute (2) Community acquired pneumonia Code(s): J18.9 - PNEUMONIA, UNSPECIFIED ORGANISM Status: Acute Qualifiers: Laterality: left Lung location: lower lobe of lung Qualified Code(s): J18.1 - Lobar pneumonia, unspecified organism (3) Transaminitis Code(s): R74.0 - NONSPEC ELEV OF LEVELS OF TRANSAMNS & LACTIC ACID DEHYDRGNSE Status: Acute (4) DMII (diabetes mellitus, type 2) Status: Chronic (5) Asthma Code(s): J45.909 - UNSPECIFIED ASTHMA, UNCOMPLICATED Status: Chronic Qualifiers: Asthma severity: mild (6) Dextrocardia Code(s): Q24.0 - DEXTROCARDIA Status: Chronic (7) GERD (gastroesophageal reflux disease) Code(s): K21.9 - GASTRO-ESOPHAGEAL REFLUX DISEASE WITHOUT ESOPHAGITIS Status: Chronic (8) Multiple thyroid nodules Code(s): E04.2 - NONTOXIC MULTINODULAR GOITER Status: Chronic (9) Scoliosis Status: Chronic - Plan Plan: 62 yo F with hx of dextrocardia, scoliosis here with LLL CAP and acute on chronic hypercapneic respiratory failure Acute on chronic hypercapneic respiratory failure -possibly 2/2 obstructive restrictive component from kyphoscoliosis with components of TYSHAWN and OHS -transferred yesterday to [facility] due to change in mentation, placed on bipap -continue bipap, O2 monitoring -Pulm following -pending echo to assess for pulmonary HTN or other cadiac abn LLL CAP -Procal 0.49 -> .41 -Afebrile, no white count -Continue po levaquin Transaminitis, improved -LFTs trending down -Celiac workup-anti TTG/Anti gliadin ABs, pending -Continue to monitor with daily labs DM2 -Stable -Continue home meds -SS to cover GERD -home meds Asthma -Continue home meds Dextrocardia -Aware Multiple thyroid nodules s/p FNA -Bx scheduled in September Dvt ppx: lovenox discussed with Dr. Benson <Lindsay Hayes - Last Filed: 09/02/18 07:15> Attending Addendum - Attending Addendum Date/Time: 09/02/18 0716 I personally evaluated the patient and discussed the management with Dr. Hayes at 0716. I agree with the History, Examination, Assessment and Plan documented above with any addition or exceptions noted below. The patient was transferred to [facility] yesterday for BIPAP. She has bipap in place this morning but is awake and interacting appropriately. She states the bipap helped overnight but wants the mask off. She is orient to person, place and time this morning. Pt's bicarb unchanged on morning labs. Echo results are pending. <Emely Benson - Last Filed: 09/02/18 15:19>
[2018-09-02] MEDS: Losartan 25 MG TAB PO SCH (09:03)
[2018-09-02] MEDS: Enoxaparin Sodium 40 MG/0.4 ML SYRINGE SC SCH (09:03)
[2018-09-02] MEDS: Nebivolol HCl 5 MG TAB PO SCH (09:04)
[2018-09-02] MEDS: Multivit, Therapeutic 1 TAB PO SCH (09:04)
[2018-09-02] MEDS: metFORMIN 500 MG TAB PO SCH ×4 (09:04→20:20)
[2018-09-02] MEDS: OLOPATADINE HCL EA NARE SCH ×2 (09:36→20:20)
[2018-09-02 13:02] LABS: Actual Bicarbonate (HCO3a) 42.2 mEq/L (22-28); Base Excess (BEa) 11.6 mEq/L (-2.0 to +3.0); Calcium, Ionized 1.21 mmol/L (1.12-1.30); Carboxyhemoglobin (COHb) 1.7 gm% (0.0-3.0); Hemoglobin (Hb) 13.2 g/dL (12.0-16.0); O2 Tension (PaO2) 98.9 mmHg (> 80.0); Potassium - ABG Lab 3.97 mmol/L (3.70-5.30); pH, Arterial 7.28 (7.35-7.45)
[2018-09-02 13:09] LABS: CO2 Tension 92.4 mmHg (35.0-45.0); Puncture Site LRA
[2018-09-02 17:14] LABS: EliA Celiac New Method **** NEW METHOD ****; Gliadin IgA Ab, Deamidated 0.4 EliAU/mL (<7 Negative); Gliadin IgG Ab, Deamidated Less than 0.4 EliAU/mL (<7 Negative); t-Transglutaminase (tTG) IgA 0.3 EliAU/mL (<7 Negative); t-Transglutaminase (tTG) IgG Less than 0.6 EliAU/mL (<7 Negative)
[2018-09-03 05:47] LABS: #Eosinphils 0.1 thou/uL (0.0-0.7); #Lymphocytes 0.8 thou/uL (1.20-3.40); #Monocytes 0.7 thou/uL (0.11-0.59); #Neutrophils 4.5 thou/uL (1.40-6.50); %Basophils 0.7 % (0.0-1.0); %Eosinophils 1.1 % (0.0-10.0); %Lymphocytes 12.8 % (21.0-51.0); %Monocytes 11.3 % (0.0-10.0); %Neutrophils 74.1 % (42.0-75.0); Hemoglobin 12.2 g/dL (12.0-16.0); Mean Corpuscular HGB CONC 31.1 g/dL (32.0-36.0); Mean Corpuscular Hemoglobin 30.8 pg (27.0-31.0); Mean Corpuscular Volume 98.9 fL (78.0-98.0); Mean Platelet Volume 8.9 fL (7.4-10.4); Platelet Count 230 thou/uL (130-400); Red Blood Cell (RBC) Count 3.97 mill/uL (4.20-5.40); White Blood Cell (WBC) Count 6.1 thou/uL (4.8-10.8)
[2018-09-03 05:58] LABS: ALT (SGPT) 57 U/L (8-55); AST (SGOT) 15 U/L (5-34); Albumin 3.6 g/dL (3.4-4.8); Alkaline Phosphatase 63 U/L (40-150); BUN (Urea Nitrogen) 8 mg/dL (9.8-20.1); Bilirubin, Total 0.5 mg/dL (0.2-1.2); Calc. Creatinine Clearance 120 mL/min (70-130); Calcium 9.5 mg/dL (7.8-10.44); Estimated GFR-MDRD Greater than 90; Globulin 2.6 g/dL (2.4-3.5); Glucose 137 mg/dL (80-115); Protein, Total 6.2 g/dL (6.0-8.3)
[2018-09-03 06:07] LABS: Anion Gap 16 mmol/L (10-20); Chloride 91 mmol/L (98-107); Potassium 3.9 mmol/L (3.5-5.1); Sodium 145 mmol/L (136-145)
[2018-09-03 06:10] LABS: Carbon Dioxide 42 mmol/L (23-31)
--- NOTE | 2018-09-03 07:49 | PRG ---
DATE OF SERVICE: 09/02/2018 SUBJECTIVE: She feels a little better today. She is more alert than she was yesterday. She has been off the BiPAP for about 2 hours now. OBJECTIVE: VITAL SIGNS: Temperature 98.7, pulse 93, respirations 17, O2 saturation 95% on 4 L, blood pressure 104/62. HEENT: Unremarkable. NECK: No JVD. LUNGS: Few crackles in both bases. CARDIAC: S1, S2 regular. ABDOMEN: Soft. EXTREMITIES: No edema. LABORATORY DATA: White blood cell count 6.4, hematocrit 38.8, platelet count 235. Sodium 143, potassium 4, chloride 92, CO2 of 38, BUN 9, creatinine 0.5, glucose 125. ASSESSMENT: Significant hypoventilation yesterday - a lot of this is probably chronic based on the results of her ABG. PLAN: Since she has been off the BiPAP, I will go ahead and repeat her ABG. We will need to try to keep her supplemental oxygen as low as possible, keep O2 sats greater than 90%. I am awaiting the results of an echocardiogram done yesterday. She will need PFTs later this week when the PFT tech becomes available. Job ID: [id number]
[2018-09-03] MEDS: Enoxaparin Sodium 40 MG/0.4 ML SYRINGE SC SCH (08:54)
[2018-09-03] MEDS: metFORMIN 500 MG TAB PO SCH ×4 (08:54→20:11)
[2018-09-03] MEDS: Multivit, Therapeutic 1 TAB PO SCH (08:54)
[2018-09-03] MEDS: Losartan 25 MG TAB PO SCH (08:54)
[2018-09-03] MEDS: Nebivolol HCl 5 MG TAB PO SCH (08:55)
[2018-09-03] MEDS: OLOPATADINE HCL EA NARE SCH ×2 (09:33→20:11)
--- NOTE | 2018-09-03 11:33 | PDOC.FM ---
- Subjective Subjective: Pt and family report confusion throughout the day yesterday. Currently A & O x3 on Bipap and symptoms resolve on bipap. Denies CP, SOB, NVDC, fever chills. - Objective Vital Signs & Weight: Vital Signs (12 hours) Temp Pulse Resp BP Pulse Ox 09/03/18 11:05 99.7 F H 92 17 103/60 95 09/03/18 08:00 96 09/03/18 07:32 98.5 F 101 H 21 H 130/69 95 09/03/18 03:56 98.1 F 106 H 20 125/89 96 09/03/18 02:21 96 09/03/18 00:00 97.8 F 95 22 H 107/67 97 Weight Weight 64.093 kg I&O: 09/02/18 09/03/18 09/04/18 06:59 06:59 06:59 Intake Total 650 1000 Output Total 1170 300 Balance -520 700 Result Diagrams: 09/03/18 05:10 09/03/18 05:10 <Calvin Gonzales - Last Filed: 09/03/18 11:34> - Objective Vital Signs & Weight: Vital Signs (12 hours) Temp Pulse Resp BP Pulse Ox 09/03/18 11:05 99.7 F H 92 17 103/60 95 09/03/18 08:00 96 09/03/18 07:32 98.5 F 101 H 21 H 130/69 95 09/03/18 03:56 98.1 F 106 H 20 125/89 96 09/03/18 02:21 96 Weight Weight 64.093 kg I&O: 09/02/18 09/03/18 09/04/18 06:59 06:59 06:59 Intake Total 650 1000 Output Total 1170 300 Balance -520 700 Result Diagrams: 09/03/18 05:10 09/03/18 05:10 <Emely Benson - Last Filed: 09/03/18 13:14> Phys Exam - Physical Examination Constitutional: NAD HEENT: PERRLA, sclera anicteric Neck: no JVD Respiratory: no wheezing, no rales, no rhonchi, clear to auscultation bilateral Cardiovascular: RRR, no rub regurg murmur noted, dextrocardia Gastrointestinal: soft, non-tender, no distention, positive bowel sounds Musculoskeletal: no edema, pulses present Neurological: non-focal, moves all 4 limbs Psychiatric: normal affect, A&O x 3 Skin: normal turgor, cap refill <2 seconds <Calvin Gonzales - Last Filed: 09/03/18 11:34> Dx/Plan (1) Acute hypercapnic respiratory failure Code(s): J96.02 - ACUTE RESPIRATORY FAILURE WITH HYPERCAPNIA Status: Acute (2) Transaminitis Code(s): R74.0 - NONSPEC ELEV OF LEVELS OF TRANSAMNS & LACTIC ACID DEHYDRGNSE Status: Acute (3) DMII (diabetes mellitus, type 2) Status: Chronic (4) Dextrocardia Code(s): Q24.0 - DEXTROCARDIA Status: Chronic (5) Multiple thyroid nodules Code(s): E04.2 - NONTOXIC MULTINODULAR GOITER Status: Chronic - Plan Plan: Acute on chronic hypercapneic respiratory failure -[place] 2/2 scoliosis with restrictive component possible TYSHAWN needs sleep study - pulm following appreciate recommendations LLL CAP -Procal 0.49 -> .41 -Afebrile, no white count -Continue po levaquin - complete 5 day course Transaminitis, improved -LFTs trending down -Celiac workup negative resolved DM2 -Stable -Continue home meds -SS to cover GERD -home meds Asthma -Continue home meds Dextrocardia -Aware Multiple thyroid nodules s/p FNA -Bx scheduled in September Dispo: Stable; however requiring increased O2 from baseline; pulmonology is following and appreciate recommendations. <Calvin Gonzales - Last Filed: 09/03/18 11:34> Attending Addendum - Attending Addendum Date/Time: 09/03/18 1313 I personally evaluated the patient and discussed the management with Dr. Gonzales. I agree with the History, Examination, Assessment and Plan documented above with any addition or exceptions noted below. The patient remains on bipap. She becomes extremely confused and hypoxic when taken off bipap. Will f/u pulmonology recs. <Emely Benson - Last Filed: 09/03/18 13:14>
--- NOTE | 2018-09-03 17:37 | PRG ---
DATE OF SERVICE: 09/03/2018 SERVICE: Pulmonary Medicine. INTERVAL HISTORY: The patient is doing really quite well from respiratory standpoint. Whenever she goes on a BiPAP break, she will get a little bit confused. That being said, her mentation is much improved compared to yesterday. She denies any chest pain, cough, fevers, chills, nausea, or vomiting. There were no significant overnight events otherwise. PHYSICAL EXAMINATION: VITAL SIGNS: Afebrile, pulse 71, blood pressure 128/57, respirations 22, and saturation 96% on 4 L nasal cannula. GENERAL: The patient is awake, alert, in no apparent distress. LUNGS: Excellent air entry. There is absolutely no prolonged expiratory phase or wheezing present. HEART: Normal rate and regular. ABDOMEN: Soft, nontender, nondistended. Bowel sounds are positive. MUSCULOSKELETAL: No cyanosis or clubbing. No pitting in the bilateral lower extremities. NEUROLOGIC: Grossly nonfocal. LABORATORY DATA: WBC 6.1, hemoglobin 12.2, and platelets 230,000. Bicarb 42. Basic metabolic profile and liver function studies are otherwise unremarkable. IMAGING: Echocardiogram demonstrates a normal ejection fraction with diastolic dysfunction. ASSESSMENT: 1. Chronic hypoxic and hypercapnic respiratory failure. 2. Severe restrictive lung disease secondary to kyphoscoliosis. 3. Chronic diastolic heart failure, currently euvolemic. DISCUSSION AND PLAN: I will put in a consultation for a home DME to see the patient. I am ordering home ventilation for night time and as needed daytime use as traditional home BiPAP is insufficient for the patient's disease process. Her restrictive lung disease is the major contributor to her respiratory failure and is independent of obstructive apneas or COPD. Once the home ventilator is arranged , we will need to determine whether or not she qualifies for oxygen on room air while awake. If she does, we can set her up with that and have her discharged from the hospital. Pulmonary will continue to follow along while she remains in-house. Job ID: [id number] MTDD
[2018-09-04 06:30] LABS: #Eosinphils 0.1 thou/uL (0.0-0.7); #Monocytes 0.7 thou/uL (0.11-0.59); #Neutrophils 4.2 thou/uL (1.40-6.50); %Basophils 0.7 % (0.0-1.0); %Eosinophils 1.3 % (0.0-10.0); %Monocytes 11.1 % (0.0-10.0); %Neutrophils 69.9 % (42.0-75.0); Hemoglobin 12.5 g/dL (12.0-16.0); Mean Corpuscular HGB CONC 30.8 g/dL (32.0-36.0); Mean Corpuscular Hemoglobin 30.2 pg (27.0-31.0); Mean Platelet Volume 8.8 fL (7.4-10.4); Platelet Count 231 thou/uL (130-400); Red Blood Cell (RBC) Count 4.12 mill/uL (4.20-5.40)
[2018-09-04 06:44] LABS: BUN (Urea Nitrogen) 10 mg/dL (9.8-20.1); Calc. Creatinine Clearance 125 mL/min (70-130); Calcium 9.6 mg/dL (7.8-10.44); Estimated GFR-MDRD Greater than 90; Glucose 121 mg/dL (80-115); Magnesium 1.7 mg/dL (1.6-2.6); Phosphorus 2.3 mg/dL (2.3-4.7)
[2018-09-04 06:55] LABS: Anion Gap 17 mmol/L (10-20); Carbon Dioxide 38 mmol/L (23-31); Chloride 93 mmol/L (98-107); Potassium 3.5 mmol/L (3.5-5.1); Sodium 144 mmol/L (136-145)
--- NOTE | 2018-09-04 09:12 | PDOC.FM ---
- Subjective Subjective: No acute events overnight. Pt doing well on NC and no acute issues. Mentation resolved and returned to baseline. - Objective Vital Signs & Weight: Vital Signs (12 hours) Temp Pulse Resp BP Pulse Ox 09/04/18 08:15 98.1 F 93 18 127/82 97 09/04/18 08:00 96 09/04/18 04:00 97.6 F 94 18 120/59 L 96 09/04/18 01:27 96 95 09/03/18 23:38 97.0 F L 93 24 H 115/62 95 Weight Weight 64.093 kg I&O: 09/03/18 09/04/18 09/05/18 06:59 06:59 06:59 Intake Total 1000 1110 Output Total 300 540 Balance 700 570 Result Diagrams: 09/04/18 05:58 09/04/18 05:58 <Calvin Gonzales - Last Filed: 09/04/18 09:09> - Objective Vital Signs & Weight: Vital Signs (12 hours) Temp Pulse Pulse Pulse Resp BP BP 09/04/18 11:42 98.0 F 95 21 H 09/04/18 11:30 90 86 122/67 113/61 09/04/18 08:15 98.1 F 93 18 09/04/18 08:00 09/04/18 04:00 97.6 F 94 18 BP Pulse Ox Pulse Ox Pulse Ox Pulse Ox 09/04/18 11:42 123/69 92 L 09/04/18 11:30 93 L 84 L 91 L 09/04/18 08:15 127/82 97 09/04/18 08:00 96 09/04/18 04:00 120/59 L 96 Weight Weight 64.093 kg I&O: 09/03/18 09/04/18 09/05/18 06:59 06:59 06:59 Intake Total 1000 1110 Output Total 300 540 Balance 700 570 Result Diagrams: 09/04/18 05:58 09/04/18 05:58 <Emely Benson - Last Filed: 09/04/18 15:26> Phys Exam - Physical Examination Constitutional: NAD HEENT: PERRLA, moist MMs, sclera anicteric Neck: no nodes, no JVD Respiratory: no wheezing, no rales, no rhonchi Cardiovascular: RRR, no significant murmur, no rub Gastrointestinal: soft, non-tender, no distention, positive bowel sounds Musculoskeletal: no edema, pulses present severe scoliosis Neurological: non-focal, moves all 4 limbs Psychiatric: normal affect Skin: normal turgor, cap refill <2 seconds <Calvin Gonzales - Last Filed: 09/04/18 09:09> Dx/Plan (1) Acute hypercapnic respiratory failure Code(s): J96.02 - ACUTE RESPIRATORY FAILURE WITH HYPERCAPNIA Status: Acute (2) Transaminitis Code(s): R74.0 - NONSPEC ELEV OF LEVELS OF TRANSAMNS & LACTIC ACID DEHYDRGNSE Status: Acute (3) DMII (diabetes mellitus, type 2) Status: Chronic (4) Dextrocardia Code(s): Q24.0 - DEXTROCARDIA Status: Chronic - Plan Plan: Acute on chronic hypercapneic respiratory failure -likley 2/2 scoliosis with restrictive component - pulm following appreciate recommendations - O2 test to assess for exertional hypoxia - bicarb slightly improved from yesterday LLL CAP -Procal 0.49 -> .41 -Afebrile, no white count -Continue po levaquin - complete 5 day course Transaminitis, improved -resolved DM2 -Stable -Continue home meds -SS to cover GERD -home meds Asthma -Continue home meds Dextrocardia -Aware Dispo: Improved mentation and doing well on NC, per pulm recs, will assess for home O2 requirements and hopefully DC to home tomorrow pending mentation remains stable and bicarb cont to decrease. <Calvin Gonzales - Last Filed: 09/04/18 09:09> Attending Addendum - Attending Addendum Date/Time: 09/04/18 9363 I personally evaluated the patient and discussed the management with Dr. Gonzales. I agree with the History, Examination, Assessment and Plan documented above with any addition or exceptions noted below. the patient is off bipap and is awake and alert. We are trying to arrange for home O2 and can be discharged per pulm when that is arranged. <Emely Benson - Last Filed: 09/04/18 15:26>
[2018-09-04] MEDS: Losartan 25 MG TAB PO SCH (09:37)
[2018-09-04] MEDS: Nebivolol HCl 5 MG TAB PO SCH (09:37)
[2018-09-04] MEDS: metFORMIN 500 MG TAB PO SCH ×4 (09:37→20:34)
[2018-09-04] MEDS: Multivit, Therapeutic 1 TAB PO SCH (09:37)
[2018-09-04] MEDS: OLOPATADINE HCL EA NARE SCH ×2 (09:38→20:34)
[2018-09-04] MEDS: Enoxaparin Sodium 40 MG/0.4 ML SYRINGE SC SCH (09:38)
--- NOTE | 2018-09-04 14:06 | PRG ---
DATE OF SERVICE: 09/04/2018 SERVICE: Pulmonary Medicine INTERVAL HISTORY: The patient is breathing comfortably today. She denies any current chest pain, fevers, chills, nausea, or vomiting. There were no significant overnight events. Nursing reports that her mentation has much improved after not being hypoxemic for last two days. She is yet to get out of bed. She is not really working with physical therapy at this point. PHYSICAL EXAMINATION: VITAL SIGNS: Afebrile, pulse 95, blood pressure 123/69, respirations 21, saturation 92% on 1 L nasal cannula. On room air, she abruptly desaturates to 81%, sitting in bed. She is completely asymptomatic when this occurs. HEENT: Normocephalic and atraumatic. Sclerae white. Conjunctivae pink. Oral mucosa is moist without lesions. LUNGS: Excellent air entry. There is no prolonged expiratory phase or wheezing present. HEART: Normal rate and regular. ABDOMEN: Soft, nontender, and nondistended. Bowel sounds are positive. MUSCULOSKELETAL: No cyanosis or clubbing. No pitting in the bilateral lower extremities noted. NEUROLOGIC: Grossly nonfocal. LABORATORY DATA: WBC 6.0, hemoglobin 12.5, platelets 231,000. Bicarbonate 38. Basic metabolic profile is unremarkable. Magnesium 1.7, phosphorus 2.3. TSH falls within the normal limits. HIV, hepatitis B, hepatitis C are all nonreactive. Syphilis is also negative. ASSESSMENT: 1. Acute on chronic hypoxic and hypercapnic respiratory failure. 2. Severe restrictive lung disease secondary to kyphoscoliosis. 3. Chronic diastolic heart failure, currently euvolemic. DISCUSSION AND PLAN: The patient will be transitioned out of the hospital today or tomorrow provided that we have continuous home O2 set up, and that we have her home ventilator set up. I will have her follow up with me in clinic in the outpatient setting. We have pulmonary function studies that are currently pending. All other studies will be essentially discontinued. This is because most of those things have been done in the inpatient setting. I would like to prove that she does not have any intrinsic lung disease on these breathing studies if possible. If she remains in-house, I will continue to follow, but from my perspective, she is stable for transition home provided that the appropriate resources are set up. I think she can return to work as early as Monday. Job ID: [id number]
[2018-09-05] MEDS: Losartan 25 MG TAB PO SCH (08:36)
[2018-09-05] MEDS: Enoxaparin Sodium 40 MG/0.4 ML SYRINGE SC SCH (08:36)
[2018-09-05] MEDS: Nebivolol HCl 5 MG TAB PO SCH (08:37)
[2018-09-05] MEDS: metFORMIN 500 MG TAB PO SCH ×2 (08:38→14:42)
[2018-09-05] MEDS: Multivit, Therapeutic 1 TAB PO SCH (08:38)
[2018-09-05] MEDS: OLOPATADINE HCL EA NARE SCH (08:42)
--- NOTE | 2018-09-05 09:34 | PDOC.FM ---
- Subjective Subjective: No acute eventes overnight. Pt reports she is feeling well and is ready to go home. Awaiting insurance approval for home O2 and ventilator. - Objective Vital Signs & Weight: Vital Signs (12 hours) Temp Pulse Resp BP Pulse Ox 09/05/18 07:47 97 09/05/18 07:31 97.8 F 86 12 118/67 98 09/05/18 04:38 97.5 F L 89 26 H 108/56 L 97 09/05/18 00:36 97.4 F L 84 16 120/56 L 96 09/04/18 21:49 92 97 Weight Weight 64.093 kg I&O: 09/04/18 09/05/18 09/06/18 06:59 06:59 06:59 Intake Total 1110 880 Output Total 540 650 Balance 570 230 Result Diagrams: 09/04/18 05:58 09/04/18 05:58 <Calvin Gonzales - Last Filed: 09/05/18 09:32> - Objective Vital Signs & Weight: Vital Signs (12 hours) Temp Pulse Resp BP Pulse Ox 09/05/18 10:55 97.8 F 92 18 97/61 95 09/05/18 07:47 97 09/05/18 07:31 97.8 F 86 12 118/67 98 09/05/18 04:38 97.5 F L 89 26 H 108/56 L 97 09/05/18 00:36 97.4 F L 84 16 120/56 L 96 Weight Weight 64.093 kg I&O: 09/04/18 09/05/18 09/06/18 06:59 06:59 06:59 Intake Total 1110 880 Output Total 540 650 Balance 570 230 Result Diagrams: 09/04/18 05:58 09/04/18 05:58 <Emely Benson - Last Filed: 09/05/18 10:58> Phys Exam - Physical Examination Constitutional: NAD HEENT: PERRLA, sclera anicteric Neck: no nodes, no JVD, supple Respiratory: no wheezing, no rales, no rhonchi, clear to auscultation bilateral Cardiovascular: RRR, no significant murmur, no rub Gastrointestinal: soft, non-tender, no distention, positive bowel sounds Musculoskeletal: no edema, pulses present Neurological: non-focal, normal sensation, moves all 4 limbs Skin: no rash, cap refill <2 seconds <Calvin Gonzales - Last Filed: 09/05/18 09:32> Dx/Plan (1) Acute hypercapnic respiratory failure Code(s): J96.02 - ACUTE RESPIRATORY FAILURE WITH HYPERCAPNIA Status: Acute (2) Transaminitis Code(s): R74.0 - NONSPEC ELEV OF LEVELS OF TRANSAMNS & LACTIC ACID DEHYDRGNSE Status: Acute (3) DMII (diabetes mellitus, type 2) Status: Chronic (4) Dextrocardia Code(s): Q24.0 - DEXTROCARDIA Status: Chronic - Plan Plan: Acute on chronic hypercapneic respiratory failure -likley 2/2 scoliosis with restrictive component - pulm following appreciate recommendations - home with home O2 today and home ventilator, awaiting insurance approval LLL CAP -Procal 0.49 -> .41 -Afebrile, no white count -Continue po levaquin - complete 5 day course Transaminitis, improved -resolved DM2 -Stable -Continue home meds -SS to cover GERD -home meds Asthma -Continue home meds Dextrocardia -Aware Dispo: Ready for DC to home with home O2 and home ventilator. <Calvin Gonzales - Last Filed: 09/05/18 09:32> Attending Addendum - Attending Addendum Date/Time: 09/05/18 1057 I personally evaluated the patient and discussed the management with Dr. Gonzales. I agree with the History, Examination, Assessment and Plan documented above with any addition or exceptions noted below. The patient is stable. Still waiting on approval for oxygen devices at home. <Emely Benson - Last Filed: 09/05/18 10:58>
--- NOTE | 2018-09-05 10:52 | PRG ---
DATE OF SERVICE: 09/05/2018 SERVICE: Pulmonary Medicine. INTERVAL HISTORY: The patient is doing great from a respiratory standpoint. Denies any current chest pain, fevers, or chills. She is awake and alert. She has no conversational dyspnea. She is talking in full sentences. Ultimately, she could not go home yesterday because we had a hard time arranging some things which are set up for today. As soon as these things are confirmed to be available, we will get her out of the hospital. Otherwise, there is no interval change to her condition. She uses the CPAP overnight, but is starting to cause some breakdown on her nose and she is going to address this with Rodolfo, her respiratory therapist. PHYSICAL EXAMINATION: VITAL SIGNS: Afebrile, pulse 86, blood pressure 118/67, respirations 12, and saturation 97% on 2 L nasal cannula. HEENT: Normocephalic and atraumatic. Sclerae white. Conjunctivae pink. Oral mucosa is moist without lesions. LUNGS: Excellent air entry. There is no prolonged expiratory phase, wheezing, rhonchi, or crackles present. HEART: Normal rate and regular. ABDOMEN: Soft, nontender, and nondistended. Bowel sounds are positive. MUSCULOSKELETAL: No cyanosis or clubbing. There is no pitting in the bilateral lower extremities. NEUROLOGIC: Nonfocal. ASSESSMENT: 1. Acute on chronic hypoxic and hypercapnic respiratory failure, returned to baseline. 2. Severe restrictive lung disease, secondary to kyphoscoliosis. 3. Chronic diastolic heart failure, currently euvolemic. DISCUSSION AND PLAN: I will have the patient follow up with me in the outpatient setting with pulmonary function studies, just to confirm that she has healthy lungs that are being restricted by her severe scoliosis. That being said, she will continue using her ventilator at night, and as needed with sleep. Additionally, she requires oxygen continuously. This may be temporary as once we control her hypercapnic failure, she may be able to come back off the oxygen. Time will tell on this issue however. If she remains in-house, I will continue to follow, but from my perspective, she is stable for transition out, provided we have arranged for the resources at home. Job ID: [id number]
[2018-09-05 15:32] VITALS: BP 96/55; TEMP 99.6
--- NOTE | 2018-09-07 11:32 | DIS ---
DATE OF ADMISSION: 08/31/2018 DATE OF DISCHARGE: 09/05/2018 LOCATION: [place], [place]. ADMITTING ATTENDING: Enrique Bustillos MD DISCHARGE ATTENDING: Emely Benson MD RESIDENT PHYSICIAN: Calvin Gonzales DO CONSULTATION: Pulmonology/Critical Care, Dr. Coleman Limon. PROCEDURES: 1. CT of the chest done on 08/30/2018 showed no evidence of pulmonary arterial embolism. There is a finding suspicious for infectious pneumonitis in the left. Recommend followup CT of the chest after treatment to document resolution. Additional congenital findings including dextrocardia. 2. Abdominal ultrasound done on 08/31/2018 showed suspected 1 cm right renal calculus. 3. Echocardiogram done on 09/01/2018 showed dextrocardia. EF estimated at 60% to 65%. E/A flow reversal was noted, suggesting diastolic dysfunction. Mild mitral regurgitation is present. [id number] tricuspid regurgitation present. HISTORY OF PRESENT ILLNESS: The patient is a 62-year-old female with a past medical history of dextrocardia, type 2 diabetes, heartburn, and recent thyroid FNA biopsy on 08/20/2018, who presented to the ED after being instructed by her gas inspector, Dr. Alonso for progressively worsening fatigue, shortness of breath, and lower extremity edema that started about 10 days prior to her arrival. The patient endorses increasing shortness of breath with exertion and swelling of her feet and her ankles. On admission, the patient was diagnosed with community-acquired pneumonia and started on IV Rocephin and azithromycin. She was also noted to have a transaminitis, likely secondary to some hepatic congestion, this was ultimately trended and had normalized prior to her discharge. On admission, her AST and ALT were 58 and 123 respectively. The patient continued to improve with azithromycin, Rocephin, and improved volume status with diuresis and was getting ready to be discharged when she subsequently became confused and had altered mental status. At which time, an ABG was drawn, which showed a pH of 7.19, pCO2 of 133.4, and pO2 of 70.5. The patient was then placed on BiPAP overnight, and subsequently, had significant improvement in her mentation. BiPAP was later weaned. The repeat ABG after BiPAP showed a pH of 7.28, pCO2 of 92.4, and pO2 of 98.9. The patient was continued on oxygen via nasal cannula and did not require BiPAP or CPAP overnight, and it was thought that the acute hypercapnic respiratory failure was secondary to combination of her restrictive lung disease from severe scoliosis in addition to mild pulmonary edema from vascular congestion. The patient did well on O2 via nasal cannula and was discharged on 1 L nasal cannula. DISCHARGE MEDICATIONS: 1. Vitamin D3 of 1000 units p.o. daily. 2. Losartan 12.5 mg p.o. daily. 3. Metformin 500 mg p.o. q.i.d. 4. Multivitamin one capsule p.o. daily. 5. Bystolic 10 mg p.o. daily. 6. Olopatadine 30.5 g one spray each naris. 7. Pantoprazole 40 mg daily. 8. Levaquin 750 mg p.o. daily for 5 days. DISCONTINUED MEDICATIONS: None. DISCHARGE PLAN: Discharged to home on 09/05/2018. DIET: Heart healthy. ACTIVITY: Ad mandie. FOLLOWUP: 1. Follow up with primary care provider in 7 to 10 days following discharge. 2. Follow up with Dr. Alonso, gas inspector in 1 to 2 weeks following discharge. DISPOSITION: The patient left the hospital in stable condition. Job ID: [id number] MTDD
--- NOTE | 2018-09-08 12:39 | EKG ---
Test Reason : ERINDICATION Blood Pressure : / mmHG Vent. Rate : 117 BPM Atrial Rate : 117 BPM P-R Int : 154 ms QRS Dur : 084 ms QT Int : 330 ms P-R-T Axes : 000 150 143 degrees QTc Int : 460 ms Sinus tachycardia Right ventricular hypertrophy Nonspecific ST and T wave abnormality Abnormal ECG Heart dextrocardia--Right-sided EKG Confirmed by MELBA GARCIA ([id number]), graphic editor AUSTIN RITTER ([id number]) on 09/08/2018 12:39:08 PM Referred By: JL Confirmed By:MELBA GARCIA
== END 2018-09-05 17:59 | disposition home or self-care (01) | DRG 193 ==
LOC: ERS 20:32 → 2NO 08-31 00:37 → IMCU/EMU 09-01 13:25
PROVIDERS: ADMIT Emergency Medicine; ATTEND Emergency Medicine
PROC: 5A09357 Assistance with Respiratory Ventilation, Less than 24 Consecutive Hours, Continuous Positive Airway Pressure (ICD-10-PCS; principal; 2018-09-01)
DX: J18.9 Pneumonia, unspecified organism (principal); J96.21 Acute and chronic respiratory failure with hypoxia; J96.22 Acute and chronic respiratory failure with hypercapnia; Q24.0 Dextrocardia; I50.32 Chronic diastolic (congestive) heart failure; E11.9 Type 2 diabetes mellitus without complications; K21.9 Gastro-esophageal reflux disease without esophagitis; M41.9 Scoliosis, unspecified; J98.4 Other disorders of lung; R74.0 Nonspecific elevation of levels of transaminase and lactic acid dehydrogenase [LDH]; J45.909 Unspecified asthma, uncomplicated; E04.2 Nontoxic multinodular goiter; Z88.0 Allergy status to penicillin; Z88.7 Allergy status to serum and vaccine; Z88.8 Allergy status to other drugs, medicaments and biological substances; Z79.84 Long term (current) use of oral hypoglycemic drugs; Z79.899 Other long term (current) drug therapy
CPT/HCPCS: 36415; 36416; 71275; 76705; 80048; 80053; 82553; 82805; 83516; 83735; 83880; 84100; 84145; 84443; 84484; 85025; 86704; 86706; 86709; 86780; 86803; 87340; 87389; 93005; 93306; 94660; 94760; 96365; 96375; G8978-GP-CJ; G8979-GP-CJ; G8980-GP-CJ; J0456; J0696; J1200; J1650; J2930; J7050; J7620; S0028

== ENCOUNTER 2018-09-26 10:41 | Day surgery (SDC) | payer OTHER ==
[2018-09-21 16:00] VITALS: BMI 27.1
[2018-09-26] MEDS ORDERED: Meperidine HCl/PF 25 MG/ML VIAL ONE (13:57)
[2018-09-26] MEDS ORDERED: Fentanyl 100 MCG/2 ML VIAL ONE (13:57)
[2018-09-26] MEDS ORDERED: Famotidine/PF 20 mg/2ml Vial ONE (13:57)
[2018-09-26] MEDS ORDERED: Lidocaine 1% w/Epinephrine 1:100K 30 ML VIAL ONE (14:01)
[2018-09-26] MEDS ORDERED: Clindamycin/D5W 900 mg/50 ml Premix Bag ONE (15:09)
[2018-09-26] MEDS ORDERED: Dexamethasone 20 MG/5 ML VIAL ONE (18:49)
[2018-09-26] MEDS ORDERED: Ondansetron PF 4 MG/2 ML Vial ONE (18:49)
[2018-09-26] MEDS ORDERED: PROPOFOL 200 MG/20 ML VIAL ONE (18:49)
[2018-09-26] MEDS ORDERED: ePHEDrine/0.9% NaCl/PF SYRINGE 50 mg/10 ml ONE (18:49)
[2018-09-26] MEDS ORDERED: Lidocaine 1% PF 5 ML VIAL ONE (18:49)
[2018-09-26] MEDS ORDERED: Succinylcholine Chloride 20 MG/ML 10 ml SYRINGE FS ONE (18:49)
--- NOTE | 2018-09-27 01:40 | OP ---
DATE OF PROCEDURE: 09/26/2018 PREOPERATIVE DIAGNOSIS: Left thyroid mass. POSTOPERATIVE DIAGNOSIS: Left thyroid mass. PROCEDURES: 1. Left hemithyroidectomy. 2. Intraoperative laryngeal nerve monitoring. ESTIMATED BLOOD LOSS: 20 mL. COMPLICATIONS: None. ANESTHESIA: ENVIRONMENTAL REMEDIATION CONSULTANT. PROCEDURE IN DETAIL: Patient was taken to the operating room and placed supine on the table. General endotracheal anesthesia was obtained by the anesthesia staff using the GlideScope. The laryngeal electrodes were confirmed to be between the true vocal cords bilaterally. The tube was secured to the midline of the upper lip and the laryngeal nerve monitor was turned on and remained on throughout the procedure. Following this, 8 mL of 1% lidocaine with 1:100,000 epinephrine was injected into an anticipated incision line and the lower neck incision was made using a 15 blade through skin, subcutaneous tissue, and the platysmal muscles. The strap muscles were identified and were in the midline. The thyroid gland was identified and was gently medialized with an Allis clamp extending medially adjacent to the thyroid capsule. Thyroid gland was dissected laterally. The middle thyroid vein was suture ligated. The superior laryngeal vascular pedicle was then identified and was suture ligated immediately adjacent to the thyroid gland. The nerve was identified and was noted to be coursing approximately 15 degrees from the tracheoesophageal groove, keeping the nerve protected. The gland was released from its attachments to the trachea and the inferior thyroid artery was suture ligated. Following this, the left lobe of the thyroid and portions of the thyroid isthmus were then suture ligated and removed. The right thyroid gland was atrophic compared to the left side, but had no palpable nodules and was left intact. Following this, the wound was irrigated. Hemostasis was controlled and drain was placed. The wound was then closed using Monocryl stitches for the strap muscles, platysma layer, and subcuticular layers. Following this, the wound was then closed using Dermabond. The patient tolerated the procedure well. Job ID: [id number]
== END 2018-09-26 18:20 | disposition home or self-care (01) ==
LOC: SDC 10:41
PROVIDERS: ATTEND Otolaryngology Plastic Surgery within the Head & Neck
PROC: 0GBG0ZZ Excision of Left Thyroid Gland Lobe, Open Approach (ICD-10-PCS; principal; 2018-09-26)
DX: E04.2 Nontoxic multinodular goiter (principal); E11.9 Type 2 diabetes mellitus without complications; J45.909 Unspecified asthma, uncomplicated; K21.9 Gastro-esophageal reflux disease without esophagitis; J34.2 Deviated nasal septum; Z79.51 Long term (current) use of inhaled steroids; Z79.84 Long term (current) use of oral hypoglycemic drugs; Z79.899 Other long term (current) drug therapy; Z88.0 Allergy status to penicillin; Z88.7 Allergy status to serum and vaccine; Z91.041 Radiographic dye allergy status
CPT/HCPCS: 36415; 85014; 88307; 93005; 93010; J0131; J1100; J2001; J2175; J2405; J2704; J3010; J3490; S0028

== ENCOUNTER 2018-11-07 11:11 | Day surgery (SDC) | payer OTHER ==
[2018-11-06 14:31] VITALS: BMI 27.1
[2018-11-07] MEDS ORDERED: Ondansetron PF 4 MG/2 ML Vial ONE (11:58)
[2018-11-07] MEDS ORDERED: PHENYLEPHRINE-NS 100 MCG/ML 10 ML SYRINGE ONE (11:58)
[2018-11-07] MEDS ORDERED: Rocuronium Bromide 10 MG/ML (10ML VIAL) ONE (11:58)
[2018-11-07] MEDS ORDERED: Lidocaine 1% PF 5 ML VIAL ONE (11:58)
[2018-11-07] MEDS ORDERED: PROPOFOL 200 MG/20 ML VIAL ONE (11:58)
[2018-11-07] MEDS ORDERED: Bacitracin Zinc Ointment 30 gm TUBE ONE (14:33)
[2018-11-07] MEDS ORDERED: Lidocaine 1% w/Epinephrine 1:100K 20 ML VIAL ONE (14:33)
[2018-11-07] MEDS ORDERED: Fentanyl 100 MCG/2 ML VIAL ONE (15:09)
[2018-11-07] MEDS ORDERED: Clindamycin/D5W 900 mg/50 ml Premix Bag ONE (15:11)
[2018-11-07] MEDS ORDERED: Promethazine HCl 25 MG/ML VIAL SLOW IVP PRN (16:25)
[2018-11-07] MEDS ORDERED: Ondansetron HCl/PF 4 MG/2 ML Vial IVP PRN (16:25)
[2018-11-07] MEDS ORDERED: Promethazine HCl 25 MG/ML VIAL IM PRN (16:25)
--- NOTE | 2018-11-08 10:16 | OP ---
DATE OF PROCEDURE: 11/07/2018 PREOPERATIVE DIAGNOSIS: Medullary thyroid cancer. POSTOPERATIVE DIAGNOSIS: Medullary thyroid cancer. PROCEDURES: 1. Completion thyroidectomy. 2. Laryngeal nerve monitoring. ESTIMATED BLOOD LOSS: 20 mL. COMPLICATION: None. ANESTHESIA: GETA with laryngeal nerve monitoring. DESCRIPTION OF PROCEDURE: The patient was taken to the operating room, placed supine on the table. General endotracheal anesthesia was obtained by the anesthesia staff using the indirect GlideScope. The tube was confirmed to be between the vocal cords. The laryngeal electrodes were confirmed to be between the true vocal cords. The tube was secured to the midline of the upper lip and the laryngeal nerve monitor was turned on and remained on throughout the procedure. Following this, the patient was prepped and draped in standard surgical fashion. The previous incision was incised extending onto the right neck slightly and the incision was carried through skin, subcutaneous tissue, and the platysmal layer. Subplatysmal dissection was performed superiorly to the level of the thyroid notch and inferiorly to the clavicles. Following this, the strap muscles were identified and . The remnant of the right thyroid was markedly atrophic and small. It was easily removed by identifying the medial edge of it with the previous left thyroidectomy that the patient had had. The remnant thyroid on this side was very atrophic and was removed in its entirety. The small drain was placed into the neck and the wound was closed using Monocryl stitches on the platysmal layer, strap muscle layer, and subcuticular layer. The skin was closed using Dermabond. Job ID: [id number]
== END 2018-11-07 18:35 | disposition home or self-care (01) ==
LOC: SDC 11:11
PROVIDERS: ATTEND Otolaryngology Plastic Surgery within the Head & Neck
PROC: 0GTK0ZZ Resection of Thyroid Gland, Open Approach (ICD-10-PCS; principal; 2018-11-07)
DX: C73 Malignant neoplasm of thyroid gland (principal); K21.9 Gastro-esophageal reflux disease without esophagitis; J45.909 Unspecified asthma, uncomplicated; E11.9 Type 2 diabetes mellitus without complications; E89.0 Postprocedural hypothyroidism; Z79.84 Long term (current) use of oral hypoglycemic drugs; Z79.899 Other long term (current) drug therapy; Z88.0 Allergy status to penicillin; Z88.7 Allergy status to serum and vaccine; Z91.041 Radiographic dye allergy status
CPT/HCPCS: 36415; 85014; 88307; J2001; J2405; J2704; J3010; J3490

== ENCOUNTER 2018-12-20 13:20 | Inpatient (IN) | payer OTHER ==
[2018-12-20 14:04] LABS: #Basophils 0.1 thou/uL (0.0-0.2); #Eosinphils 0.1 thou/uL (0.0-0.7); #Lymphocytes 1.1 thou/uL (1.20-3.40); #Monocytes 0.7 thou/uL (0.11-0.59); #Neutrophils 7.3 thou/uL (1.40-6.50); %Basophils 0.6 % (0.0-1.0); %Eosinophils 0.6 % (0.0-10.0); %Lymphocytes 12.1 % (21.0-51.0); %Neutrophils 78.6 % (42.0-75.0); Hemoglobin 12.1 g/dL (12.0-16.0); Mean Corpuscular HGB CONC 30.1 g/dL (32.0-36.0); Mean Corpuscular Hemoglobin 30.2 pg (27.0-31.0); Mean Platelet Volume 8.6 fL (7.4-10.4); Platelet Count 305 thou/uL (130-400); RBC Distribution Width 15.3 % (11.5-14.5); Red Blood Cell (RBC) Count 4.02 mill/uL (4.20-5.40); White Blood Cell (WBC) Count 9.3 thou/uL (4.8-10.8)
--- NOTE | 2018-12-20 14:22 | RAD ---
FRONTAL VIEW CHEST: Date: 12/20/18 INDICATION: Shortness of breath, desaturation. FINDINGS: There is enlargement of the cardiac silhouette and pulmonary vasculature. Right pleural fluid is pres ent. There is mild pleural based density at the inferior left chest. A single metallic barbara traverses the scoliotic spine. IMPRESSION: 1. CHF. 2. Prominent opacification of the right hemithorax, likely related to pleural fluid with adjacent at electasis and/or pneumonia. 3. Pulmonary edema. Follow-up to resolution recommended. POS: [facility]
[2018-12-20 14:26] LABS: ALT (SGPT) 32 U/L (8-55); AST (SGOT) 22 U/L (5-34); Alkaline Phosphatase 73 U/L (40-150); BUN (Urea Nitrogen) 19 mg/dL (9.8-20.1); Bilirubin, Total 0.6 mg/dL (0.2-1.2); Calc. Creatinine Clearance 0 mL/min (70-130); Calcium 9.6 mg/dL (7.8-10.44); Estimated GFR-MDRD 89; Globulin 2.7 g/dL (2.4-3.5); Glucose 161 mg/dL (80-115); Protein, Total 6.7 g/dL (6.0-8.3)
[2018-12-20 14:32] LABS: Chloride 95 mmol/L (98-107); Potassium 4.3 mmol/L (3.5-5.1); Sodium 147 mmol/L (136-145)
[2018-12-20 14:37] LABS: Anion Gap 15 mmol/L (10-20); Carbon Dioxide 40 mmol/L (23-31)
--- NOTE | 2018-12-20 18:19 | CT ---
CT BRAIN WITHOUT CONTRAST: 12/20/18 HISTORY: Altered mental status. COMPARISON: None. FINDINGS: Mild chronic microvascular ischemic changes. No midline shift or mass effect. No hydrocephalus. The calvarium is intact. The paranasal sinuses and mastoids are clear. IMPRESSION: Mild chronic microvascular ischemic changes. No acute intracranial abnormality. POS: [facility]
[2018-12-20 20:06] LABS: Troponin I Less than 0.010 ng/mL (< 0.028)
[2018-12-20] MEDS ORDERED: Acetaminophen 325 MG TAB PO PRN (22:23)
[2018-12-20] MEDS ORDERED: Zolpidem Tartrate 5 MG TAB PO PRN (22:23)
[2018-12-20] MEDS ORDERED: Ondansetron PF 4 MG/2 ML Vial IVP PRN (22:23)
[2018-12-20 23:24] LABS: Troponin I Less than 0.010 ng/mL (< 0.028)
[2018-12-21 04:19] LABS: #Basophils 0.1 thou/uL (0.0-0.2); #Eosinphils 0.1 thou/uL (0.0-0.7); #Monocytes 0.9 thou/uL (0.11-0.59); #Neutrophils 7.6 thou/uL (1.40-6.50); %Basophils 0.9 % (0.0-1.0); %Eosinophils 0.9 % (0.0-10.0); %Lymphocytes 10.3 % (21.0-51.0); Mean Corpuscular Hemoglobin 30.7 pg (27.0-31.0); Mean Platelet Volume 8.9 fL (7.4-10.4); Platelet Count 286 thou/uL (130-400); RBC Distribution Width 15.3 % (11.5-14.5); Red Blood Cell (RBC) Count 4.25 mill/uL (4.20-5.40); White Blood Cell (WBC) Count 9.6 thou/uL (4.8-10.8)
[2018-12-21 04:39] LABS: BUN (Urea Nitrogen) 20 mg/dL (9.8-20.1); Calc. Creatinine Clearance 0 mL/min (70-130); Calcium 9.6 mg/dL (7.8-10.44); Estimated GFR-MDRD 88; Glucose 155 mg/dL (80-115)
[2018-12-21 04:48] LABS: Anion Gap 17 mmol/L (10-20); Carbon Dioxide 40 mmol/L (23-31); Chloride 92 mmol/L (98-107); Potassium 4.5 mmol/L (3.5-5.1); Sodium 144 mmol/L (136-145)
[2018-12-21] MEDS ORDERED: Heparin 5,000 UNITS/ML VIAL SC SCH (09:00)
[2018-12-21] MEDS ORDERED: Heparin 1,000 UNITS/ML VIAL ONE (10:06)
[2018-12-21 10:34] LABS: Actual Bicarbonate (HCO3a) 55.2 mEq/L (22-28); Analyzer IN Cardio ER; Calcium, Ionized 1.14 mmol/L (1.12-1.30); Carboxyhemoglobin (COHb) 1.1 gm% (0.0-3.0); Hemoglobin (Hb) 12.6 g/dL (12.0-16.0); O2 Tension (PaO2) 73.9 mmHg (> 80.0); Potassium - ABG Lab 4.35 mmol/L (3.70-5.30)
--- NOTE | 2018-12-21 12:03 | CON ---
DATE OF CONSULTATION: 12/21/2018 CONSULTING PHYSICIAN: Geovani Salinas. REASON FOR CONSULTATION: Respiratory failure. TIME SPENT: The following encompassed 45 minutes of critical care time included extensive discussion with the patient and family involving in the life issues. HISTORY OF PRESENT ILLNESS: This patient is an unfortunate 63-year-old who came to the hospital with severe hypoxemia with reported O2 sats as low as 30%. She has been followed by my partner, Dr. Alonso, both in the office and in the hospital in the past, but apparently has not been good about keeping appointments in the office. This patient has actually been trying to go to work every day with a portable oxygen concentrator. She has not been doing well in that environment. She has been hiding her low O2 sats from her family, so that they will not prevent her from going to work. PAST MEDICAL HISTORY: 1. Severe kyphoscoliosis resulting in restrictive pulmonary impairment. 2. Dextrocardia. 3. Malformed right hand. 4. Diabetes mellitus type 2. 5. Gastroesophageal reflux. 6. Asthma. 7. Salgado barbara placement for scoliosis. 8. Cervical neck fusion. 9. Appendectomy. 10. Hand surgery. 11. Ovarian cyst. ALLERGIES: IODINE, TETANUS VACCINE, AND PENICILLIN. FAMILY MEDICAL HISTORY: Remarkable for diabetes, hypertension, heart failure, and sleep apnea. REVIEW OF SYSTEMS: Remarkable for shortness of breath, episodic confusion, difficulty taking a deep breath. No cough. No fever. No hemoptysis, melena, hematochezia, hematuria, or dysuria. MEDICATIONS: Prior to admission: 1. Metformin. 2. Protonix. 3. Bystolic. 4. Multivitamin. 5. Cozaar. 6. Probiotic. 7. Flonase. 8. Vitamin D. 9. Citracal plus D. 10. Levothyroxine. 11. She is also on a BiPAP machine at home. She says she uses every night, but I am not completely sure that. PHYSICAL EXAMINATION: VITAL SIGNS: Temperature 98.9, pulse 88, blood pressure 108/72, O2 saturation is 98% on BiPAP to 60% oxygen. GENERAL: She is actually awake. She can converse with a BiPAP mask. She actually gives appropriate answers. HEENT: Pupils are reactive. Sclerae icteric. Oropharynx clear. NECK: No adenopathy or JVD. LUNGS: She has poor air movement throughout. No wheezes, no rhonchi. CARDIAC: S1, S2, displaced to the right side of the chest. ABDOMEN: Soft, obese, nontender, and nondistended. EXTREMITIES: No clubbing or cyanosis. She has trace edema in her legs. LABORATORY DATA: White blood cell count 9.6, hematocrit 43.5, and platelet count 286. Sodium 144, potassium 4.5, chloride 92, CO2 40, BUN 20, creatinine 0.6, glucose 155. ABG; pH 7.21, pCO2 141, PO2 of 73, that was done on BiPAP with FiO2 of 60%. Her chest x-ray shows dextrocardia with some possible compressive atelectasis in the right base. ASSESSMENT: This patient is presenting with acute on chronic hypercapnic and hypoxic respiratory failure. The etiology is due to restrictive lung disease secondary to her severe kyphoscoliosis. This is not a fixable problem. We can mitigate her decline with the use of noninvasive or invasive mechanical ventilation. I had extensive discussion with the patient and her family regarding options including continuing the BiPAP versus intubation/tracheostomy and putting her on mechanical ventilation permanently. It sounds like they are leaning toward just using BiPAP. The patient and the family wanted to discuss in detail. I do think they all had a good understanding of the fact that her life expectancy would be short in this situation. At the current time, I see nothing to offer other than the BiPAP. We have changed her BiPAP mask to a full mask and have gone up on her high pressure settings. Her location needs to be changed to CCU from [facility]. Job ID: [id number]
[2018-12-21] MEDS ORDERED: Dextrose 5% in Water 1,000 ML IV PRN (12:44)
[2018-12-21] MEDS ORDERED: Dextrose 50% Abboject 50 ML SYRINGE SLOW IVP PRN (12:44)
--- NOTE | 2018-12-21 12:47 | PDOC.PN ---
- Subjective Encounter Start Date: 12/21/18 (f/u [facility]) Encounter Start Time: 12:45 Subjective: Pt reports some confusion. states her breathing is more comfortable -: denies any pain. Reports new dx of thyroid cancer and f/u with -: ENT on February 03 - Objective Resuscitation Status - Order Detail: 12/20/18 22:23 Resuscitation Status Routine Resuscitation Status: FULL: Full Resuscitation Discussed with: patient Vital Signs & Weight: Vital Signs (12 hours) Pulse Pulse Ox 12/21/18 07:34 100 12/21/18 07:33 90 12/21/18 01:08 89 Result Diagrams: 12/21/18 03:54 12/21/18 03:54 Phys Exam - Physical Examination Constitutional: NAD absent breath sounds at right base/some breath sounds upper lung right no audible wheezing/rhonchi/rales on left Cardiovascular: RRR, no significant murmur Gastrointestinal: soft, non-tender, no distention, positive bowel sounds Musculoskeletal: no edema Neurological: non-focal, moves all 4 limbs Deviation from normal: erythema and scaline around mouth Dx/Plan (1) Acute respiratory failure with hypoxia and hypercapnia Code(s): J96.01 - ACUTE RESPIRATORY FAILURE WITH HYPOXIA; J96.02 - ACUTE RESPIRATORY FAILURE WITH HYPERCAPNIA Status: Acute (2) Hypothyroid Code(s): E03.9 - HYPOTHYROIDISM, UNSPECIFIED Status: Chronic (3) DMII (diabetes mellitus, type 2) Status: Chronic (4) Dextrocardia Code(s): Q24.0 - DEXTROCARDIA Status: Chronic (5) GERD (gastroesophageal reflux disease) Code(s): K21.9 - GASTRO-ESOPHAGEAL REFLUX DISEASE WITHOUT ESOPHAGITIS Status: Chronic - Plan * Appreciate Pulmonology consult - bipap for now, difficult choices for advanced restrictive lung disease * Hypothyroidism with recent dx of thyroid cancer - will continue levothyroxine and pt to f/u with ENT * htn history - hold meds for now as bp on low normal side * dm - SSI with meals if elevated, hold metformin * * dvt prophy - normal renal function, will change to lovenox * gi prophy - not indicated, but on home ppi per review of discharge meds from September - will continue * code status full * * pall care consult placed * * pt at high risk of decompensation, to include potential in-hospital decompensation.
[2018-12-21 15:03] LABS: pH, Arterial 7.21 (7.35-7.45)
[2018-12-21 15:04] LABS: ALV-art Gradient 35.175 (0-20); CO2 Tension 140.9 mmHg (35.0-45.0); Puncture Site LB
[2018-12-22] MEDS: Levothyroxine Sodium 75 MCG TAB PO SCH (06:26)
--- NOTE | 2018-12-22 08:20 | PDOC.PN ---
- Subjective Encounter Start Date: 12/22/18 (f/u resp failure) Encounter Start Time: 08:18 Subjective: bipap turned off this morning, pt feeling well and reports her -: breathing is comfortable and she feels more mentally clear. -: denies any pain/n/v/ - Objective Resuscitation Status - Order Detail: 12/20/18 22:23 Resuscitation Status Routine Resuscitation Status: FULL: Full Resuscitation Discussed with: patient Vital Signs & Weight: Vital Signs (12 hours) Temp Pulse Pulse Ox 12/22/18 07:13 95 12/22/18 07:00 98.6 F 12/22/18 04:00 98.8 F 12/22/18 02:54 80 12/22/18 02:00 99.1 F 12/21/18 21:00 99.6 F Weight Admit Weight 157 lb 10.088 oz Weight 157 lb 10.088 oz Most Recent Monitor Data Heart Rate from ECG 92 NIBP 133/80 NIBP BP-Mean 97 Respiration from ECG 17 SpO2 92 I&O: 12/21/18 12/22/18 12/23/18 06:59 06:59 06:59 Intake Total 400 Output Total 115 300 Balance 285 -300 Result Diagrams: 12/21/18 03:54 12/21/18 03:54 Additional Labs: Accuchecks 12/22/18 12/21/18 12/21/18 06:27 21:58 18:25 POC Glucose 110 95 91 EKG Reviewed by me: Yes (tele - sinus 80's, pac's) Phys Exam - Physical Examination Constitutional: NAD Respiratory: no wheezing rales at right base and decreased breath sounds, shallow breaths Cardiovascular: RRR, no significant murmur Gastrointestinal: soft, non-tender, no distention, positive bowel sounds Musculoskeletal: no edema Neurological: non-focal, moves all 4 limbs Psychiatric: normal affect Skin: no rash Dx/Plan (1) Acute respiratory failure with hypoxia and hypercapnia Code(s): J96.01 - ACUTE RESPIRATORY FAILURE WITH HYPOXIA; J96.02 - ACUTE RESPIRATORY FAILURE WITH HYPERCAPNIA Status: Acute (2) Hypothyroid Code(s): E03.9 - HYPOTHYROIDISM, UNSPECIFIED Status: Chronic (3) DMII (diabetes mellitus, type 2) Status: Chronic (4) Dextrocardia Code(s): Q24.0 - DEXTROCARDIA Status: Chronic (5) GERD (gastroesophageal reflux disease) Code(s): K21.9 - GASTRO-ESOPHAGEAL REFLUX DISEASE WITHOUT ESOPHAGITIS Status: Chronic - Plan * * Appreciate Pulmonology consult - bipap recommended with other options presented for management of this chronic advanced restrictive lung disease. pt in process of deciding. * Rales on exam - pt is lasix naive - will order a small dose of lasix and see if this changes breathing * Hypothyroidism with recent dx of thyroid cancer - will continue levothyroxine and pt to f/u with ENT * htn history - continue to hold home meds- resume as bp increases * * dm - SSI with meals if elevated, hold metformin * * Will increase activity and request PT eval * * dvt prophy - lovenox * gi prophy - not indicated, on home dosing of ppi * code status full * * pall care consult placed at time of admission * *
[2018-12-22] MEDS ORDERED: Furosemide 20 MG/2 ML VIAL SLOW IVP SCH (08:30)
[2018-12-22] MEDS: Enoxaparin Sodium 40 MG/0.4 ML SYRINGE SC SCH (08:34)
[2018-12-22 11:19] LABS: Actual Bicarbonate (HCO3a) 51.4 mEq/L (22-28); Base Excess (BEa) 22.5 mEq/L (-2.0 to +3.0); Calcium, Ionized 1.12 mmol/L (1.12-1.30); Carboxyhemoglobin (COHb) 1.6 gm% (0.0-3.0); O2 Tension (PaO2) 66.3 mmHg (> 80.0); Potassium - ABG Lab 3.56 mmol/L (3.70-5.30); pH, Arterial 7.42 (7.35-7.45)
[2018-12-22 11:21] LABS: CO2 Tension 81.8 mmHg (35.0-45.0); Puncture Site LRA
[2018-12-22] MEDS: HumaLOG 300 UNITS/3 ML VIAL SC PRN ×2 (11:28→16:16)
--- NOTE | 2018-12-22 11:30 | PRG ---
DATE OF SERVICE: 12/22/2018 SUBJECTIVE: Ms. Negro remains in the CCU. Surprisingly, she is up in a chair, not needing assistance of BiPAP. The BiPAP has been off for maybe the last 3 hours. She is very talkative, completely alert and oriented. OBJECTIVE: VITAL SIGNS: Her temperature is 98.6, pulse 93, blood pressure 131/85, O2 saturation 94%. She is currently on oxygen at 2 L nasal cannula. Intake for the last 24 hours has been 400 input, 115 + what was in the bedpan. HEENT: Unremarkable. NECK: No JVD. LUNGS: Distant, but clear breath sounds. CARDIAC: S1, S2. Regular. ABDOMEN: Soft. EXTREMITIES: No edema. ASSESSMENT: This patient has severe restrictive pulmonary impairment and came in with grossly elevated carbon dioxide level. It is shocking how functional she was yesterday with that elevated CO2 level. Today, her situation is even more impressive. I want to go ahead and repeat her ABG to see what her CO2 is doing. She had questions about an eventual tracheostomy placement. I told her right now, we will postpone that given that she is doing better. It looks like if we can keep her compliant with BiPAP, she may do reasonably well. I would avoid Lasix in this patient, because this will worsen her serum bicarbonate level. If any diuretic is used, then we will probably want to use acetazolamide. Again, a lot of that is going to be based on ABG today. The patient needs to continue BiPAP at night. She will remain in the ICU today. Prognosis continues to be poor. Job ID: [id number]
[2018-12-23 05:21] LABS: BUN (Urea Nitrogen) 14 mg/dL (9.8-20.1); Calc. Creatinine Clearance 112 mL/min (70-130); Estimated GFR-MDRD Greater than 90; Glucose 137 mg/dL (80-115)
[2018-12-23 05:31] LABS: Anion Gap 16 mmol/L (10-20); Carbon Dioxide 39 mmol/L (23-31); Chloride 93 mmol/L (98-107); Potassium 3.7 mmol/L (3.5-5.1); Sodium 144 mmol/L (136-145)
[2018-12-23] MEDS: Levothyroxine Sodium 75 MCG TAB PO SCH (05:59)
[2018-12-23] MEDS ORDERED: Non-Formulary Item 1 EACH (Azelastine Hcl [Azelastine Hcl 0.15% Nasal Spray] 2 SPRAY) EA NARE PRN (09:42)
--- NOTE | 2018-12-23 09:42 | PDOC.PN ---
- Subjective Encounter Start Date: 12/23/18 (f/u DM) Encounter Start Time: 09:38 Subjective: Pt without complaints today, reports that mornings are better for -: her. Denies any pain or concerns - Objective Resuscitation Status - Order Detail: 12/20/18 22:23 Resuscitation Status Routine Resuscitation Status: FULL: Full Resuscitation Discussed with: patient Vital Signs & Weight: Vital Signs (12 hours) Temp Pulse 12/23/18 08:00 98.3 F 12/23/18 04:00 98.7 F 12/23/18 00:22 80 12/23/18 00:00 98.8 F Weight Admit Weight 157 lb 10.088 oz Weight 157 lb 10.088 oz Most Recent Monitor Data Heart Rate from ECG 85 NIBP 138/70 NIBP BP-Mean 92 Respiration from ECG 17 SpO2 87 I&O: 12/22/18 12/23/18 12/24/18 06:59 06:59 06:59 Intake Total 400 600 240 Output Total 115 1550 0 Balance 285 -950 240 Result Diagrams: 12/21/18 03:54 12/23/18 04:43 Additional Labs: Accuchecks 12/23/18 12/22/18 12/22/18 05:59 21:08 15:57 POC Glucose 139 H 169 H 176 H 12/22/18 11:11 POC Glucose 179 H Phys Exam - Physical Examination Constitutional: NAD Respiratory: no wheezing, no rales, no rhonchi fair air movement Cardiovascular: RRR, no significant murmur Gastrointestinal: soft, non-tender, positive bowel sounds Musculoskeletal: no edema Neurological: non-focal, moves all 4 limbs Deviation from normal: mildly erythemaous and scaling patches on chin and around nose Dx/Plan (1) Acute respiratory failure with hypoxia and hypercapnia Code(s): J96.01 - ACUTE RESPIRATORY FAILURE WITH HYPOXIA; J96.02 - ACUTE RESPIRATORY FAILURE WITH HYPERCAPNIA Status: Acute (2) Hypothyroid Code(s): E03.9 - HYPOTHYROIDISM, UNSPECIFIED Status: Chronic (3) DMII (diabetes mellitus, type 2) Status: Chronic (4) Dextrocardia Code(s): Q24.0 - DEXTROCARDIA Status: Chronic (5) GERD (gastroesophageal reflux disease) Code(s): K21.9 - GASTRO-ESOPHAGEAL REFLUX DISEASE WITHOUT ESOPHAGITIS Status: Chronic (6) Rash Code(s): R21 - RASH AND OTHER NONSPECIFIC SKIN ERUPTION Status: Acute - Plan * * Appreciate Pulmonology consult - improved with bipap at night. * Rales from yesterday have resolved. Reviewed Dr. Limon's note - in the future if diuresis is needed, will choose acetazolamide * Hypothyroidism with recent dx of thyroid cancer - will continue levothyroxine and pt to f/u with ENT * htn history - continue to hold home meds- resume as bp increases * * dm - SSI with meals if elevated. Anticipate pt can resume metformin at discharge * * rash c/w seborrheic dermatitis - start metronidazole topical cream bid, anticipate pt will benefit from a rx at discharge as well. * * Will increase activity and request PT eval * * dvt prophy - lovenox * gi prophy - not indicated, on home dosing of ppi * code status full * * pall care consult placed at time of admission. Pt will benefit from a Palliative Care Physician after discharge to assist with decision making, collaborative care and optimizing quality of life. * .
[2018-12-23] MEDS ORDERED: Azelastine 137 MCG/Spray 30 ML NS PRN (09:56)
[2018-12-23] MEDS: Enoxaparin Sodium 40 MG/0.4 ML SYRINGE SC SCH (09:58)
--- NOTE | 2018-12-23 11:17 | PRG ---
DATE OF SERVICE: 12/23/2018 SUBJECTIVE: She is in good spirits, has no acute complaints. She slept with a BiPAP last night. OBJECTIVE: VITAL SIGNS: Her temperature is 98.3, pulse 85, blood pressure 138/70, O2 saturation 87% to 99%. HEENT: Unremarkable. NECK: No JVD. LUNGS: Diminished breath sounds at the bases. CARDIAC: S1, S2. Regular. ABDOMEN: Soft. EXTREMITIES: Trace edema. LABORATORY DATA: Sodium 144, potassium 3.7, chloride 93, CO2 of 39, BUN 14, creatinine 0.5, glucose 137. White blood cell count 9.6, hematocrit 43.5, and platelet count 286. Repeat blood gas yesterday showed a reduction in her CO2 from 140 to 82, which is probably right at her baseline. ASSESSMENT: 1. Acute on chronic hypercapnic respiratory failure, which has improved with the use of BiPAP. 2. Restrictive lung impairment. PLAN: 1. She can be transferred out to the [facility]. 2. I have asked her to bring her Trilogy up here, so that we can get it checked to make sure the settings are right. 3. May need to review her home medications and stop the diuretic she is taking at home. Hydrochlorothiazide may be exacerbating a metabolic alkalosis. Acetazolamide may be a better long-term option. 4. Dr. Alonso will assume care tomorrow. Job ID: [id number]
[2018-12-23] MEDS: metroNIDAZOLE 45 GM TUBE TOP SCH ×2 (11:26→20:28)
[2018-12-23] MEDS: HumaLOG 300 UNITS/3 ML VIAL SC PRN ×2 (12:33→20:26)
[2018-12-23 16:01] VITALS: BP 122/68
[2018-12-24 05:02] LABS: BUN (Urea Nitrogen) 17 mg/dL (9.8-20.1); Calc. Creatinine Clearance 118 mL/min (70-130); Calcium 8.9 mg/dL (7.8-10.44); Estimated GFR-MDRD Greater than 90; Glucose 117 mg/dL (80-115)
[2018-12-24 05:11] LABS: Anion Gap 9 mmol/L (10-20); Chloride 95 mmol/L (98-107); Potassium 3.9 mmol/L (3.5-5.1); Sodium 148 mmol/L (136-145)
[2018-12-24 05:16] LABS: Carbon Dioxide 48 mmol/L (23-31)
[2018-12-24] MEDS: Levothyroxine Sodium 75 MCG TAB PO SCH (06:34)
[2018-12-24] MEDS: Enoxaparin Sodium 40 MG/0.4 ML SYRINGE SC SCH (08:49)
[2018-12-24] MEDS: metroNIDAZOLE 45 GM TUBE TOP SCH ×2 (08:50→20:34)
[2018-12-24] MEDS: Atorvastatin Calcium 40 MG TAB PO SCH (08:50)
--- NOTE | 2018-12-24 11:30 | PDOC.PN ---
- Subjective Encounter Start Date: 12/24/18 Encounter Start Time: 11:50 Subjective: Patient feeling better. Had Bipap overnight. On NC O2 now. -: Brought her Bipap up to have it looked at. - Objective Resuscitation Status - Order Detail: 12/20/18 22:23 Resuscitation Status Routine Resuscitation Status: FULL: Full Resuscitation Discussed with: patient JUAN PABLO Reviewed: Yes Vital Signs & Weight: Vital Signs (12 hours) Temp Pulse Ox 12/24/18 11:10 99.0 F 12/24/18 07:08 98.0 F 12/24/18 04:00 98.6 F 12/24/18 02:19 94 L 12/24/18 00:00 97.0 F L Weight Admit Weight 157 lb 10.088 oz Weight 145 lb 5 oz Most Recent Monitor Data Heart Rate from ECG 98 NIBP 126/71 NIBP BP-Mean 89 Respiration from ECG 17 SpO2 99 I&O: 12/23/18 12/24/18 12/25/18 06:59 06:59 06:59 Intake Total 600 970 Output Total 1550 500 Balance -950 470 Result Diagrams: 12/21/18 03:54 12/24/18 03:55 Additional Labs: Accuchecks 12/24/18 12/24/18 12/23/18 10:40 05:51 20:08 POC Glucose 187 H 152 H 218 H 12/23/18 12/23/18 16:34 11:35 POC Glucose 133 H 220 H Phys Exam - Physical Examination Constitutional: NAD HEENT: moist MMs Respiratory: no wheezing, no rales, no rhonchi Cardiovascular: RRR, no significant murmur Gastrointestinal: soft, positive bowel sounds Neurological: non-focal, moves all 4 limbs Psychiatric: normal affect, A&O x 3 Dx/Plan (1) Acute on chronic respiratory failure with hypoxia and hypercapnia Code(s): J96.21 - ACUTE AND CHRONIC RESPIRATORY FAILURE WITH HYPOXIA; J96.22 - ACUTE AND CHRONIC RESPIRATORY FAILURE WITH HYPERCAPNIA Status: Acute Comment : improved with BiPap (2) Restrictive lung disease Code(s): J98.4 - OTHER DISORDERS OF LUNG Status: Chronic (3) Hypothyroid Code(s): E03.9 - HYPOTHYROIDISM, UNSPECIFIED Status: Chronic (4) DMII (diabetes mellitus, type 2) Status: Chronic (5) Dextrocardia Code(s): Q24.0 - DEXTROCARDIA Status: Chronic (6) GERD (gastroesophageal reflux disease) Code(s): K21.9 - GASTRO-ESOPHAGEAL REFLUX DISEASE WITHOUT ESOPHAGITIS Status: Chronic (7) Seborrheic dermatitis Code(s): L21.9 - SEBORRHEIC DERMATITIS, UNSPECIFIED Status: Acute Comment: on topical metronidazole (8) Thyroid cancer Status: Acute Comment: f/u with her ENT as outpatient - Plan cont current plan of care, respiratory therapy discharge once ok with pulmololgy -: check on home Bipap machine * . - Discharge Day Encounter end time: 12:00
[2018-12-24] MEDS: HumaLOG 300 UNITS/3 ML VIAL SC PRN ×3 (11:45→20:35)
[2018-12-24 12:30] VITALS: BMI 28.3
--- NOTE | 2018-12-24 14:55 | PRG ---
DATE OF SERVICE: 12/24/2018 SERVICE: Pulmonary Medicine. INTERVAL HISTORY: The patient is doing great from a respiratory standpoint. Breathing comfortably. Denies any current chest pain, fevers, chills, or cough. Otherwise, she is doing fine. She has hypoxic drive. Whenever we provided with too much oxygen, she will hyperventilate, and developed increasing respiratory failure. Her problem is not hypoxemia. She has been perfectly awake, alert, and comfortable with saturations in the 60s and 70s. Clearly, I do not want them there, but that being said, whenever she is hypoxemic, she needs to ventilate. She does not need more oxygen. PHYSICAL EXAMINATION: VITAL SIGNS: Afebrile. Pulse 94, blood pressure 113/63, respirations 19, and saturation 96% on 2 L nasal cannula. GENERAL: The patient is awake and alert, in no apparent distress. LUNGS: Decreased air entry with no prolonged expiratory phase or wheezing. HEART: Normal rate and regular. ABDOMEN: Soft, nontender, and nondistended. Bowel sounds are positive. MUSCULOSKELETAL: No cyanosis or clubbing. No pitting in the bilateral lower extremities. NEUROLOGIC: Grossly nonfocal LABORATORY DATA: Sodium 148, bicarb 48, anion gap falls within normal limits. Creatinine 0.56. ASSESSMENT: 1. Extnc-qy-dndxyls hypoxic and hypercapnic respiratory failure. 2. Metabolic encephalopathy secondary to hypercapnia. 3. Restrictive lung disease, associated with scoliosis, horrendous. DISCUSSION AND PLAN: The patient has hypoxic drive. She cannot be given too much oxygen. We need her saturations to be between an 80% and 86%. Anything above that, and we will need to decrease her oxygen. If her oxygen saturations dip below 80% on minimal oxygen (less than 1 L per minute), the answer is to put her back on her ventilator and improve her minute volume. If we continue to give her oxygen for low oxygen level, we will promote hypoventilation and worsen our issue. She will remain in the IMCU for an additional 24 hours, but tomorrow morning, if she looks good, we will consider transitioning her home. Job ID: [id number]
[2018-12-25] MEDS: Levothyroxine Sodium 75 MCG TAB PO SCH (06:27)
[2018-12-25 06:38] LABS: BUN (Urea Nitrogen) 16 mg/dL (9.8-20.1); Calc. Creatinine Clearance 121 mL/min (70-130); Calcium 8.9 mg/dL (7.8-10.44); Estimated GFR-MDRD Greater than 90; Glucose 134 mg/dL (80-115)
[2018-12-25 06:47] LABS: Anion Gap 13 mmol/L (10-20); Carbon Dioxide 39 mmol/L (23-31); Chloride 97 mmol/L (98-107); Potassium 3.9 mmol/L (3.5-5.1); Sodium 145 mmol/L (136-145)
[2018-12-25] MEDS: Atorvastatin Calcium 40 MG TAB PO SCH (08:11)
[2018-12-25] MEDS: Enoxaparin Sodium 40 MG/0.4 ML SYRINGE SC SCH (08:11)
[2018-12-25] MEDS: metroNIDAZOLE 45 GM TUBE TOP SCH (08:12)
--- NOTE | 2018-12-25 10:19 | PDOC.PN ---
- Subjective Encounter Start Date: 12/25/18 Encounter Start Time: 10:40 Subjective: Patient reports no SOB. No cough. Ready to go home. Discussing -: future plans of care with palliative care. - Objective Resuscitation Status - Order Detail: 12/20/18 22:23 Resuscitation Status Routine Resuscitation Status: FULL: Full Resuscitation Discussed with: patient MAR Reviewed: Yes Vital Signs & Weight: Vital Signs (12 hours) Temp Pulse Pulse Ox 12/25/18 07:41 88 L 12/25/18 07:04 98.0 F 12/25/18 03:36 88 92 L 12/25/18 03:23 98.7 F 12/24/18 23:28 97.8 F Weight Admit Weight 157 lb 10.088 oz Weight 150 lb 9 oz Most Recent Monitor Data Heart Rate from ECG 101 NIBP 139/77 NIBP BP-Mean 97 Respiration from ECG 28 SpO2 81 I&O: 12/24/18 12/25/18 12/26/18 06:59 06:59 06:59 Intake Total 970 1050 Output Total 500 2 Balance 470 1048 Result Diagrams: 12/21/18 03:54 12/25/18 05:50 Additional Labs: Accuchecks 12/25/18 12/24/18 12/24/18 05:54 19:54 16:26 POC Glucose 139 H 225 H 164 H 12/24/18 10:40 POC Glucose 187 H Phys Exam - Physical Examination Constitutional: NAD HEENT: moist MMs Respiratory: no wheezing, no rales, no rhonchi Cardiovascular: RRR Gastrointestinal: soft, positive bowel sounds Neurological: non-focal, moves all 4 limbs Psychiatric: normal affect, A&O x 3 Dx/Plan (1) Acute on chronic respiratory failure with hypoxia and hypercapnia Code(s): J96.21 - ACUTE AND CHRONIC RESPIRATORY FAILURE WITH HYPOXIA; J96.22 - ACUTE AND CHRONIC RESPIRATORY FAILURE WITH HYPERCAPNIA Status: Acute Comment : improved with BiPap, patient has hypoxic respiratory drive, cannot treat drops in O2 sats with oxygen alone, needs Bipap for any drops (2) Restrictive lung disease Code(s): J98.4 - OTHER DISORDERS OF LUNG Status: Chronic (3) Hypothyroid Code(s): E03.9 - HYPOTHYROIDISM, UNSPECIFIED Status: Chronic (4) DMII (diabetes mellitus, type 2) Status: Chronic (5) Dextrocardia Code(s): Q24.0 - DEXTROCARDIA Status: Chronic (6) GERD (gastroesophageal reflux disease) Code(s): K21.9 - GASTRO-ESOPHAGEAL REFLUX DISEASE WITHOUT ESOPHAGITIS Status: Chronic (7) Seborrheic dermatitis Code(s): L21.9 - SEBORRHEIC DERMATITIS, UNSPECIFIED Status: Acute Comment: on topical metronidazole (8) Thyroid cancer Status: Acute Comment: f/u with her ENT as outpatient - Plan cont current plan of care, respiratory therapy home when ok with Dr. Alonso * . - Discharge Day Encounter end time: 10:50
[2018-12-25] MEDS: HumaLOG 300 UNITS/3 ML VIAL SC PRN (10:40)
--- NOTE | 2018-12-25 14:21 | PRG ---
DATE OF SERVICE: 12/25/2018 SERVICE: Pulmonary Medicine. INTERVAL HISTORY: The patient is doing fine from respiratory standpoint. She is breathing comfortably. There has been no interval change to her condition. Overnight, she had saturations that felt quite low. Her oxygen once again got increased. Otherwise, there has been no interval change to her condition. PHYSICAL EXAMINATION: VITAL SIGNS: Afebrile with a T-max of 99.1, pulse 101, respirations 21, saturations 93% on 1 L nasal cannula. Blood pressure 130/60. HEENT: Normocephalic and atraumatic. Sclerae are white. Conjunctivae are pink. Oral mucosa is moist without lesions. LUNGS: Decent air entry. No prolonged expiratory phase or wheezing is appreciated. HEART: Normal rate, regular. ABDOMEN: Soft, nontender, nondistended. Bowel sounds are positive. MUSCULOSKELETAL: No cyanosis or clubbing. No pitting in the bilateral lower extremities. NEUROLOGIC: Grossly nonfocal. LABORATORY DATA: Bicarb 39. Basic metabolic profile is otherwise unremarkable. Creatinine 0.52. ASSESSMENT: 1. Acute on chronic hypoxic and hypercapnic respiratory failure. 2. Metabolic encephalopathy secondary to hypercapnia, resolved. 3. Restrictive lung disease associated with scoliosis, horrendous. DISCUSSION AND PLAN: The patient is back to baseline, can be considered for transition out of the hospital. Home health in the outpatient setting is perfectly reasonable. I have had multiple conversations with the patient and the patient's sister. These were recorded events on an iPhone. That being said, I think they have complete understanding of what my expectations are. Hopefully, we will be able to prevent her from coming back to the hospital time and again. Ms. Negro has been very clear with me that under no circumstances would she want tracheostomy moving forward. As such, we will do everything we can to keep her out of the hospital, on her home ventilator. Job ID: [id number]
[2018-12-25 15:39] VITALS: TEMP 98.8
--- NOTE | 2018-12-26 08:29 | DIS ---
DATE OF ADMISSION: 12/20/2018 DATE OF DISCHARGE: 12/25/2018 PRIMARY CARE PHYSICIAN: Serafin Munoz DO REASON FOR ADMISSION: Respiratory failure. DIAGNOSES AT DISCHARGE: 1. Acute on chronic respiratory failure with hypoxia and hypercapnia. 2. Restrictive lung disease. 3. Hypothyroidism. 4. Diabetes mellitus type 2. 5. Dextrocardia. 6. Gastroesophageal reflux disease. 7. Seborrheic dermatitis. 8. Thyroid cancer. PROCEDURES: CT of the brain showing mild chronic microvascular ischemic changes. No acute abnormality. CONSULTATIONS: Pulmonology, Dr. Limon and Dr. Alonso. SUMMARY OF HOSPITAL COURSE: This is a 63-year-old white female with a known history of severe kyphoscoliosis with restrictive pulmonary impairment, requires trying BiPAP at home. The patient came in severely hypoxemic to the hospital with sats as low as 30%. She has been using portable oxygen and has been checking her oxygen levels at home, but has been hiding the fact that they are so low from the family, so they would not prevent her from going to work. She has been increasing her oxygen if the oxygen saturations would drop. In the hospital, the patient had intermittent episodes of lucidity and would go off the BiPAP. However, then she would desat and she would become confused. Dr. Alonso determined the patient has hypoxic respiratory drive and that she needs to have her oxygen kept between 80% and 86%. If oxygen does drop from respiratory failure, she instead of adding extra nasal cannula oxygen , she needs to go on the BiPAP, otherwise she will get CO2 narcosis from the increased oxygen supply. The patient is doing much better at the time of discharge. She was speaking with Palliative Care about plans for the future as this condition progresses. She was doing well with low-dose oxygen during the day, tolerating low 80s sats and BiPAP at night. She was cleared to discharge home by Dr. Alonso. DISCHARGE MANAGEMENT: 1. Locations: Discharged home with Home Health. 2. Activity: As tolerated. 3. Diet: Diabetic low-sodium diet. MEDICATIONS: 1. Metronidazole cream apply topically twice a day to seborrheic dermatitis. 2. Atorvastatin 40 mg daily. 3. Astelin 2 sprays in each nostril twice a day. 4. Levothyroxine 75 mcg daily. 5. Protonix 40 mg daily. 6. Vitamin D3 of 1000 units each night. 7. Hydrochlorothiazide 12.5 mg daily. 8. Losartan 25 mg daily. 9. Metformin . 10. Multivitamin daily. 11. Bystolic 10 mg daily. The patient is to follow up with Dr. Alonso as an outpatient, with Dr. Munoz as needed. She continues talking with hospice agencies about the future when this condition progresses. Job ID: [id number] MTDD
== END 2018-12-25 16:18 | disposition home health service (06) | DRG 189 ==
LOC: ERS 13:20 → ERHOLD 20:02 → CCU 12-21 12:34 → IMCU/EMU 12-23 15:16
PROVIDERS: ADMIT Family Medicine; ATTEND Family Medicine
PROC: 5A09457 Assistance with Respiratory Ventilation, 24-96 Consecutive Hours, Continuous Positive Airway Pressure (ICD-10-PCS; principal; 2018-12-20)
DX: J96.22 Acute and chronic respiratory failure with hypercapnia (principal); G93.41 Metabolic encephalopathy; Q24.0 Dextrocardia; J96.21 Acute and chronic respiratory failure with hypoxia; E03.9 Hypothyroidism, unspecified; E11.9 Type 2 diabetes mellitus without complications; K21.9 Gastro-esophageal reflux disease without esophagitis; L21.9 Seborrheic dermatitis, unspecified; C73 Malignant neoplasm of thyroid gland; M41.9 Scoliosis, unspecified; J98.4 Other disorders of lung; I10 Essential (primary) hypertension; J45.909 Unspecified asthma, uncomplicated; Z98.1 Arthrodesis status; M21.941 Unspecified acquired deformity of hand, right hand; Z88.8 Allergy status to other drugs, medicaments and biological substances; Z79.899 Other long term (current) drug therapy; Z79.84 Long term (current) use of oral hypoglycemic drugs; Z99.89 Dependence on other enabling machines and devices; Z88.0 Allergy status to penicillin; Z90.49 Acquired absence of other specified parts of digestive tract
CPT/HCPCS: 36415; 36416; 70450; 71045; 80048; 80053; 82805; 83880; 84443; 84484; 85025; 93005; 94660; 94760; J1644; J1650; J1940

== ENCOUNTER 2019-01-23 12:29 | Outpatient (CLI) | payer OTHER, SELFPAY ==
--- NOTE | 2019-01-30 09:16 | MMO ---
Bilateral MAMMO Bilat Screen [facility]BRE[facility]. CLINICAL HISTORY: Patient is 63 years old and is seen for screening. The patient has no family history of breast cancer. The patient has a history of Skin cancer and thyroid cancer. VIEWS: The views performed were: bilateral craniocaudal with tomosynthesis; bilateral mediolateral oblique with tomosynthesis; and bilateral exaggerated craniocaudal. FILMS COMPARED: The present examination has been compared to prior imaging studies performed at [facility] on 04/18/2014 and 07/24/2015. MAMMOGRAM FINDINGS: The breasts are heterogeneously dense, which could obscure a lesion on mammography. There are stable benign appearing calcifications seen in both breasts. There are no suspicious masses, suspicious calcifications, or new areas of architectural distortion. IMPRESSION: THERE IS NO MAMMOGRAPHIC EVIDENCE OF MALIGNANCY. A ROUTINE FOLLOW-UP MAMMOGRAM IN 1 YEAR IS RECOMMENDED. THE RESULTS OF THIS EXAM WERE SENT TO THE PATIENT. ACR BI-RADS Category 2 - Benign finding MAMMOGRAPHY NOTE: 1. A negative mammogram report should not delay a biopsy if a dominant of clinically suspicious mass is present. 2. Approximately 10% to 15% of breast cancers are not detected by mammography. 3. Adenosis and dense breasts may obscure an underlying neoplasm.
== END 2019-01-23 12:30 | disposition home or self-care (01) ==
LOC: BICMAMMO 12:29
PROVIDERS: ATTEND Family Medicine
DX: Z12.31 Encounter for screening mammogram for malignant neoplasm of breast (principal); Z85.850 Personal history of malignant neoplasm of thyroid; Z85.828 Personal history of other malignant neoplasm of skin
CPT/HCPCS: 77063; 77067

== ENCOUNTER 2019-04-10 12:39 | Outpatient (CLI) | payer OTHER ==
--- NOTE | 2019-04-11 15:41 | PFT ---
PATIENT HISTORY: HEIGHT: 60 IN WEIGHT: 145 SMOKER: NEVER HOW LONG: NA PACKS PER DAY PRODUCTIVE COUGH: NO LUNG DISEASE: PHYSICIAN INTERPRETATION FINAL REPORT: Very severe reduction in both Expiratory Flows and Vital Capacity is present. Following Bronchodilator Therapy there was a good improvement and Flows suggestive of some reversible improvement. RV was increased, RV/TLC was hyper-expanded; airway resistance markedly increased. Diffusion Capacity severely reduced. IMPRESSION: Obstructive ventilatory impairment. Severely reduced Diffusion Capacity Export Coordinator: BRIAN Lumber Racker: BRIAN JEFFREY
== END 2019-04-10 12:40 | disposition home or self-care (01) ==
LOC: CP 12:39
PROVIDERS: ATTEND Internal Medicine
DX: J98.4 Other disorders of lung (principal)
CPT/HCPCS: 94060; 94727; 94729

== ENCOUNTER 2020-02-28 14:06 | Outpatient (CLI) | payer OTHER ==
--- NOTE | 2020-02-28 14:40 | RAD ---
Exam: XR Shoulder Rt 2 View HISTORY: Right shoulder pain. COMPARISON: Chest x-ray on 12/20/2018 FINDINGS: No acute fracture is visualized. Only internally and externally rotated views of the shoulder are obt ained. Scapular Y view or axillary view was not obtained to evaluate the glenohumeral relationship, but no obvious dislocation is appreciated. A defect is seen within the superolateral aspect of the hu meral head likely related to Hill-Sachs deformity. There are osseous densities seen adjacent to the humeral head which were also seen on prior exam and are difficult to locate. This may be relate to in tra-articular loose bodies and associated calcific peritendinitis. The coracoclavicular and acromioclavicular distances are within normal limits. Postoperative changes of the cervical spine as well as thoracic spine are seen. IMPRESSION: 1. No definite acute osseous abnormality visualized. 2. Findings suggestive of Hill-Sachs deformity. 3 Osseous densities adjacent to the humeral head which may represent intra-articular loose bodies. Mu ch smaller osseous densities were seen in this region on a prior examination in 2018. Associated calcific peritendinitis is a possibility.
== END 2020-02-28 14:07 | disposition home or self-care (01) ==
LOC: BICRAD 14:06
PROVIDERS: ATTEND Physician Assistant
DX: M25.511 Pain in right shoulder (principal); M85.811 Other specified disorders of bone density and structure, right shoulder

== ENCOUNTER 2020-04-22 09:11 | Outpatient (CLI) | payer BC ==
--- NOTE | 2020-04-22 09:46 | MMO ---
Bilateral MAMMO Bilat Screen [facility]DI+BRETT. CLINICAL HISTORY: Patient is 64 years old and is seen for screening. The patient has no family history of breast cancer. The patient has a history of Skin cancer and thyroid cancer. VIEWS: The views performed were: bilateral craniocaudal with tomosynthesis and bilateral mediolateral oblique with tomosynthesis. FILMS COMPARED: The present examination has been compared to prior imaging studies performed at [facility] on 01/23/2019, and at [facility] on 04/18/2014 and 07/24/2015. This study has been interpreted with the assistance of computer-aided detection. MAMMOGRAM FINDINGS: The breasts are heterogeneously dense, which could obscure a lesion on mammography. Benign calcifications are noted bilaterally. There are no suspicious masses, suspicious calcifications, or new areas of architectural distortion. IMPRESSION: THERE IS NO MAMMOGRAPHIC EVIDENCE OF MALIGNANCY. A ROUTINE FOLLOW-UP MAMMOGRAM IN 1 YEAR IS RECOMMENDED. THE RESULTS OF THIS EXAM WERE SENT TO THE PATIENT. ACR BI-RADS Category 2 - Benign finding MAMMOGRAPHY NOTE: 1. A negative mammogram report should not delay a biopsy if a dominant of clinically suspicious mass is present. 2. Approximately 10% to 15% of breast cancers are not detected by mammography. 3. Adenosis and dense breasts may obscure an underlying neoplasm. Reported by: RONALD OAKLEY MD Electonically Signed: [id number]
== END 2020-04-22 09:12 | disposition home or self-care (01) ==
LOC: BICMAMMO 09:11
PROVIDERS: ATTEND Family Medicine
DX: Z12.31 Encounter for screening mammogram for malignant neoplasm of breast (principal); Z85.850 Personal history of malignant neoplasm of thyroid; Z85.828 Personal history of other malignant neoplasm of skin
CPT/HCPCS: 77063; 77067

== ENCOUNTER 2020-04-28 12:29 | Outpatient (CLI) | payer BC ==
--- NOTE | 2020-04-28 14:26 | MRI ---
BRAIN MRI WITH AND WITHOUT CONTRAST: Date: 04/28/2020 COMPARISON: None. HISTORY: Elevated cortisol and prolactin levels, evaluate for a pituitary lesion. TECHNIQUE: Multiplanar, multisequence MR imaging of the brain is obtained with and without contrast utilizing a pituitary mass protocol. FINDINGS: The diffusion-weighted imaging demonstrates no evidence for acute infarction. There are a few scattered subcentimeter foci of increased T2 and FLAIR signal within the periventricu lar, deep, and subcortical white matter suggesting a mild/moderate degree of small vessel disease. Th e paranasal sinuses and mastoid air cells appear grossly unremarkable. The precontrast sagittal T1-weighted imaging demonstrates a small T1 hyperintense lesion within the i nferior mid portion of the sella measuring 3-4 mm. On the dynamic postcontrast and delayed postcontra st imaging, the 3-4 mm lesion of increased precontrast T1 signal demonstrates no evidence for enhance ment. There is no suprasellar lesion. The pituitary stalk is normal in caliber and normal in location . The optic chiasm region and the cavernous sinus region appears unremarkable bilaterally. Normal cav ernous carotid flow-voids are noted. The whole brain postcontrast imaging demonstrates no abnormal enhancement within the brain parenchyma . IMPRESSION: 3-4 mm T1 hyperintense lesion within the central aspect of the sella with no suprasellar extension or associated mass effect. The primary consideration for a lesion in this location is a proteinaceous p ars intermedius cyst or small Rathke's cleft cyst. A tiny hemorrhagic pituitary adenoma is a possibil ity as well. POS: [facility]
[2020-04-28] MEDS ORDERED: Magnevist 469MG/ML 20 ML VIAL ONE (15:57)
== END 2020-04-28 12:30 | disposition home or self-care (01) ==
LOC: BICMRI 12:29
PROVIDERS: ATTEND Internal Medicine Endocrinology, Diabetes & Metabolism
DX: E22.1 Hyperprolactinemia (principal); G93.9 Disorder of brain, unspecified
CPT/HCPCS: 70553; 82565; A9579

== ENCOUNTER 2022-05-06 08:53 | Outpatient (CLI) | payer MEDICARE | END 2022-05-06 08:54 | disposition home or self-care (01) | LOC: BICMAMMO 08:53 | PROVIDERS: ATTEND Family Medicine | DX: Z12.31 Encounter for screening mammogram for malignant neoplasm of breast (principal); Z13.820 Encounter for screening for osteoporosis; M85.851 Other specified disorders of bone density and structure, right thigh; M85.852 Other specified disorders of bone density and structure, left thigh; Z78.0 Asymptomatic menopausal state | CPT/HCPCS: 77063; 77067; 77080 ==